=== PATIENT | female | born 1965 | race Caucasian/White ===

== ENCOUNTER 2023-07-26 10:35 | Outpatient (REF) | payer MEDICARE, SELFPAY ==
[2023-07-26 11:33] LABS: SARS-CoV-2 Ag NEGATIVE (NEGATIVE)
[2023-07-26 11:34] LABS: Influenza Virus A Antigen Negative; Influenza Virus B Antigen Negative; Internal Control Within Normal Limits
== END 2023-07-26 10:36 | disposition home or self-care (01) ==
LOC: LAB 10:35
PROVIDERS: PCP Nurse Practitioner; Visit Provider Nurse Practitioner
DX: Z20.822 Contact with and (suspected) exposure to COVID-19 (principal); Z11.8 Encounter for screening for other infectious and parasitic diseases
CPT/HCPCS: 87635; 87804; 87811

== ENCOUNTER 2024-03-12 08:59 | Outpatient (REF) | payer MEDICARE, SELFPAY ==
--- OUTSIDE RECORDS SUMMARY | 2024-03-12 09:23 | XMS_ITS | CCD ---
Author Organization [facility]iniSyny Care Team Providers Care Disassembler Product Name Role Phone KATEY BRYANT Attending Unavailable MANNY, AHMAD Consulting Unavailable MANNY, AHMAD Admitting Unavailable AICHHOLZ, SUGAR GRINDER SANDRA Primary Care Unavailable MANNY, AHMAD Admitting Unavailable MANNY, AHMARIAJOSED Attending Unavailable MANNY, AHMAD Consulting Unavailable AICHHOLZ, SUGAR GRINDER SANDRA Primary Care Unavailable AICHHOLZ, SUGAR GRINDER SANDRA Primary Care Unavailable AICHHOLZ, SUGAR GRINDER SANDRA Admitting Unavailable AICHHOLZ, SUGAR GRINDER SANDRA Attending Unavailable AICHHOLZ, SUGAR GRINDER SANDRA Consulting Unavailable AICHHOLZ, SUGAR GRINDER SANDRA Primary Care Unavailable AICHHOLZ, SUGAR GRINDER SANDRA Admitting Unavailable AICHHOLZ, SUGAR GRINDER SNADRA Attending Unavailable AICHHOLZ, SUGAR GRINDER SANDRA Consulting Unavailable AICHHOLZ, SUGAR GRINDER SANDRA Primary Care Unavailable AICHHOLZ, SUGAR GRINDER SANDRA Admitting Unavailable AICHHOLZ, SUGAR GRINDER SANDRA Attending Unavailable AICHHOLZ, SUGAR GRINDER SANDRA Consulting Unavailable AICHHOLZ, SUGAR GRINDER SANDRA Primary Care Unavailable AICHHOLZ, SUGAR GRINDER SANDRA Admitting Unavailable AICHHOLZ, SUGAR GRINDER SANDRA Attending Unavailable AICHHOLZ, SUGAR GRINDER SANDRA Consulting Unavailable MD Katey Bryant Attending Provider Sandra Ho Primary Care Provider DO Noel Santiago Attending Provider Sandra Ho Primary Care Provider DO Noel Santiago Attending Provider Sandra Ho Primary Care Unavailable Manny, Ahmad Admitting Unavailable Ross Bryantd Attending Unavailable Sandra Ho Primary Care Unavailable Noel Santiago Admitting Unavailable Noel Santiago Attending Unavailable Sandra Ho Primary Care Unavailable Noel Santiago Attending Unavailable Noel Santiago Admitting Unavailable Sandra Ho Primary Care Unavailable Noel Santiago Attending Unavailable Noel Santiago Admitting Unavailable Sandra Ho Primary Care Unavailable Noel Santiago Attending Unavailable Noel Santiago Admitting Unavailable Eduard Sethi MD Primary Care Provider Vic APPLICATIONS SALES REPRESENTATIVE, Sandra Unavailable SANDRA HO Attending Unavailable SANDRA HO Attending Unavailable SANDRA HO Attending Unavailable Medications Current Medications Medication Drug Class(es) Dates Sig (Normalized) Sig (Original) aspirin 325 mg oral tablet (3 sources) Platelet Aggregation Inhibitor, Nonsteroidal Anti-inflammatory Drug Start: 01-12-2022 take 1 tablet by mouth every eight hours Aspirin (Oriana Aspirin) 325 mg Tablet Active 325 MG PO Q8H January 12, 2022 3:39pm b complex-vitamin C-vitamin E-zinc (Stress Formula/Zinc) tablet (2 sources) take 1 tablet by mouth in the morning b complex-vitamin C-vitamin E-zinc (Stress Formula/Zinc) tablet Take 1 tablet by mouth in the morning. 0 Active cholecalciferol 0.125 mg oral tablet (6 sources) Vitamin D Start: 01-12-2022 take 1 tablet by mouth once daily Cholecalciferol (Vitamin D3) (Vitamin D3) 125 mcg (5,000 unit) Tablet Active 125 MCG PO Daily January 12, 2022 3:20pm take 1 tablet by evelin th once in the morning cholecalciferol (Vitamin D-3) 50 MCG (20 00 UT) tablet Indications: Vitamin D Deficiency Take 2,000 Units by mouth in the morning. 0 Active DULoxetine 30 mg delayed release oral capsule (12 sources) Serotonin and Norepinephrine Reuptake Inhibitor Start: 07-04-2023 End: 07-03-2024 take 1 capsule by mouth at bedtime DULoxetine (Cymbalta) [address] capsule Indications: Mild episode of recurrent major depressive disorder (HCC) (CMS/HCC) Take 1 capsule (30 mg) by mouth at bedtime Do not crush or chew. 90 capsule 0 07/04/2023 07/03/2024 Active Start: 07-04-2023 End: 10-02-2023 take 1 capsule by mouth in the morning DULoxetine (Cymbalta) [address] capsule Indications: Mild episode of recurrent major depressive disorder (HCC) (CMS/HCC) Take 1 capsule (60 mg) by mouth in the morning. Do not crush or chew.. 90 capsule 0 07/04/2023 10/02/2023 Active Start: 01-12-2022 take 1 capsule by mo uth once daily at bedtime Duloxetine (Cymbalta) 30 mg Capsule,Delayed Release(Dr/Ec) Active 30 MG PO Daily at bedtime January 12, 2022 3:20pm Start: 01-12-2022 take 1 capsule by mo uth once daily in the morning Duloxetine (Cymbalta) 60 mg Capsule,Delayed Release(Dr/Ec) Active 60 MG PO Every morning January 12, 2022 3:20pm magnesium lactate 84 mg extended release oral tablet (2 sources) take 1 tablet by mouth in the morning magnesium lactate CR (Magtab) 84 MG (7MEQ) ER tablet Take 84 mg by mouth in the morning. 0 Active omeprazole 20 mg delayed release oral capsule (3 sources) Proton Pump Inhibitor take 1 capsule by mouth before mealtime omeprazole (PriLOSEC) [address] capsule Indications: Gastroesophageal Reflux Disease Take 20 mg by mouth in the morning. Take before meals. Do not crush or chew.. 0 Active Turmeric extract (2 sources) Turmeric (QC SAMARA GEOVANNA COMPLEX PO) Take by mouth 0 Active vitamin k1 5 mg oral tablet (2 sources) Warfarin Reversal Agent, Vitamin K phytonadione (Vitami n K) 5 MG tablet Take by mouth 0 Active Problems Active Problems Problem Classification Problem Date Documented Date Episodic/Chronic Anxiety disorders (3 sources) Generalized anxiety disorder; Translations: [Generalized anxiety disorder] Onset: 08-23-2023 08-23-2023 Chronic Complications of surgical procedures or medical care (3 sources) History of parathyroidectomy; Translations: [Postprocedural hypoparathyroidism] Onset: 07-04-2023 07-04-2023 Chronic Disorders of lipid metabolism (10 sources) Hyperlipidemia, unspecified; Translations: [Mixed hyperlipidemia] Onset: 08-30-2021 Resolved: 08-23-2023 Chronic Endometriosis (3 sources) Endometriosis (clinical); Translations: [Endometriosis, unspecified] Onset: 08-23-2023 08-23-2023 Chronic Esophageal disorders (3 sources) Gastroesophageal reflux disease; Translations: [Gastro-esophageal reflux disease without esophagitis] Onset: 08-23-2023 08-23-2023 Chronic Malaise and fatigue (4 sources) Fatigue; Translations: [Chronic fatigue, unspecified] Onset: 08-23-2023 08-23-2023 Chronic Malaise and fatigue (4 sources) Other fatigue; Translations: [Fatigue] Onset: 09-05-2021 08-23-2023 Episodic Mood disorders (5 sources) Recurrent major depressive episodes, mild ; Translations: [Major depressive disorder, recurrent, mild] Onset: 07-04-2023 07-04-2023 Chronic Nutritional deficiencies (6 sources) Vitamin D deficiency, unspecified; Translations: [Vitamin D deficiency] Onset: 12-15-2021 07-04-2023 Chronic Other endocrine disorders (1 source) Primary hyperparathyroidism; Translations: [PRIMARY HYPERPARATHYROIDISM] Onset: 12-15-2021 Chronic Other endocrine disorders (7 sources) Hyperparathyroidism; Translations: [Hyperparathyroidism, unspecified] Onset: 07-04-2023 07-04-2023 Chronic Other endocrine disorders (1 source) Endocrine disorder, unspecified; Translations: [ENDOCRINE DISORDER UNSPECIFIED] Onset: 11-03-2021 Episodic Other nutritional; endocrine; and metabolic disorders (4 sources) Hypercalcemia; Translations: [HYPERCALCEMIA] Onset: 12-12-2021 Chronic Other nutritional; endocrine; and metabolic disorders (3 sources) Hypercalcemia; Translations: [Hypercalcemia] Onset: 07-04-2023 07-04-2023 Chronic Other nutritional; endocrine; and metabolic disorders (5 sources) Body mass index 30+ - obesity; Translations: [Obesity, unspecified] Onset: 07-26-2023 07-26-2023 Chronic Other nutritional; endocrine; and metabolic disorders (4 sources) Weight gain; Translations: [Abnormal weight gain] Onset: 08-23-2023 08-23-2023 Episodic Other screening for suspected conditions (not mental disorders or infectious disease) (11 sources) Encounter for screening for malignant neoplasm of cervix; Translations: [Patient encounter status] Onset: 08-31-2021 Episodic Other upper respiratory disease (3 sources) Allergic rhinitis due to pollen; Translations: [Allergic rhinitis due to pollen] Onset: 08-23-2023 08-23-2023 Chronic Residual codes; unclassified (1 source) Acquired absence of uterus with remaining cervical stump; Translations: [ACQ ABSENCE UTRUS REM CERV STUMP] Onset: 12-15-2021 Episodic Residual codes; unclassified (3 sources) Insomnia; Translations: [Insomnia, unspecified] Onset: 08-23-2023 08-23-2023 Episodic Thyroid disorders (5 sources) Non-toxic uninodular goiter; Translations: [Nontoxic single thyroid nodule] Onset: 07-04-2023 07-04-2023 Chronic Unclassified (1 source) Postprocedural hypoparathyroidism; Translations: [Postprocedural hypoparathyroidism] Onset: 09-13-2022 Unclassified (1 source) E21.3 - Hyperparathyroidism, unspecified; Translations: [E21.3 - Hyperparathyroidism, unspecified] Onset: 01-24-2022 Unclassified (1 source) E21.0 - Primary hyperparathyroidism; Translations: [E21.0 - Primary hyperparathyroidism] Onset: 01-16-2022 Unclassified (1 source) Z01.812 - Encounter for preprocedural laboratory examination; Translations: [Z01.812 - Encounter for preprocedural laboratory examination] Onset: 01-12-2022 Unclassified (1 source) E83.52 - Hypercalcemia; Translations: [E83.52 - Hypercalcemia] Onset: 12-29-2021 Past or Other Problems Problem Classification Problem Date Documented Date Episodic/Chronic Other female genital disorders (1 source) Other specified noninflammatory disorders of vagina; Translations: [OTH SPEC NONINFLAMMATORY D/O VAGINA] Onset: 09-05-2021 Episodic Results Test Name Value Interpretation Reference Range Facility Calciumon 09-13-2022 Calcium [Mass/Vol] 9.5 mg/dL Normal 8.2-10.2 [facility] Comment on above: Order Comment: Reaso n for Exam Status post parathyroidectomy Performed By: #### S [id number], [id number], [id number] #### [address] Calcium [Mass/volume] in Ser um or PlasmaOrdered By: Noel Santiago on 09-13-2022 Calcium [Mass/Vol] 9.5 mg/dL 8.2-10.2 [facility] Parathyrin.intact [Mass/volu me] in Serum or PlasmaOrdered By: Noel Santiago on 09-13-2022 Parathyrin.intact [Mass/Vol] 78.7 pg/mL [facility] Parathyroid Hormone Intacton 09-13-2022 Parathyroid Hormone Intact 78.7 pg/mL Normal [facility] Comment on above: Order Comment: Reaso n for Exam Status post parathyroidectomy Result Comment: PERF ORMED BY: [place] [id number] PATHOLOGIST FURNACE FEEDER MARK PURDY M.D. Performed By: #### S [id number], [id number], [id number] #### [facility] [address] [place], [place] [id number] [facility] Calciumon 01-24-2022 Calcium [Mass/Vol] 9.4 mg/dL Normal 8.2-10.2 [facility] Comment on above: Order Comment: Reaso n for Exam Hyperparathyroidism Performed By: #### S [id number], [id number], [id number] #### [facility] [address] [place], [place] [id number] [facility] Parathyroid Hormone Intacton 01-24-2022 Parathyroid Hormone Intact 66.8 pg/mL Normal [facility] Comment on above: Order Comment: Reaso n for Exam Hyperparathyroidism Result Comment: PERF ORMED BY: [facility] [address] [place] [address] PATHOLOGIST FURNACE FEEDER MARK PURDY M.D. Performed By: #### S [id number], [id number], [id number] #### [facility] [address] [place], [place] [id number] [facility] Calciumon 01-16-2022 Calcium [Mass/Vol] 10.0 mg/dL Normal 8.2-10.2 [facility] Comment on above: Order Comment: Comme nt Run stat and call to Dr. Santiago Performed By: #### S [id number], [id number], [id number] #### [facility] [address] [place] [address] [place] Intact PTH IO 10MINon 2021 Intact PTH IO 10MIN 81.16 pg/mL Normal 12.00-88.00 [facility] Comment on above: Result Comment: Resu lts called at 0853 on 01/16/22 PERFORMED BY: [place] [address] PATHOLOGIST FURNACE FEEDER MARK PURDY M.D. Performed By: #### S [id number], [id number], [id number] #### [facility] [address] [place] [address] [place] Intact PTH IO 15MINon 2021 Intact PTH IO 15MIN 61.90 pg/mL Normal [facility] Comment on above: Result Comment: Resu lts called at 0859 on 01/16/22 PERFORMED BY: [place] [address] PATHOLOGIST FURNACE FEEDER MARK PURDY M.D. Performed By: #### S [id number], [id number], [id number] #### [facility] [address] [place] [address] [place] Intact PTH IO Additionalon 0 01-16-2022 Intact PTH IO Additional 38.30 pg/mL [facility] Comment on above: Order Comment: Comme nt 30 min PTO IO Minutes from excision: 30 Result Comment: Resu lts called at 0916 on 01/16/22 PERFORMED BY: [place] [address] PATHOLOGIST FURNACE FEEDER MARK PURDY M.D. Performed By: #### S TATPTHIO ADDL #### [facility] [address] [place] [address] [place] Intact PTH IO Post Induction on 01-16-2022 Intact PTH IO Post Induction 120.90 High 12.00-88.00 [facility] Comment on above: Result Comment: Resu lts called at 0825 on 01/16/22 PERFORMED BY: [place] [id number] [place] [id number] PATHOLOGIST FURNACE FEEDER MARK PURDY M.D. Performed By: #### S [id number], [id number], [id number] #### [facility] [address] [place] [address] [facility] 01-16-2022 L -- ---- Specimen: [id number] Received: 01/16/22 Status: RIYA Pena Num: [id number] Spec Type: Surgical Subm Dr: Noel Santiago DO Tissues: A Parathyroid Gland (RT INF PARATHYROID) Procedures: HE Stain, Gross/Micro L4 ---- Patient Age/Sex Location Account Attending Physician ---- Sandra Hammond 56/F [place] [id number] Noel W Murcek,DO ---- SPEC NUM: [id number] RECD: 01/16/22 STATUS: RIYA KELLE NUM: [id number] MARK: 01/16/22 DR: Noel Santiago, ENTERED: 01/16/[address] [facility] [address]: JAMIE TYPE: Surgical DEPT: S ORDERED: HE Stain, Gross/Micro L4 ORDERED: HE Stain, Gross/Micro L4 Pathological Diagnosis Parathyroid gland, right inferior, parathyroidectomy: -Parathyroid adenoma, (oxyphil type), 1100 mg Clinical Information Hyperparathyroidism Gross Description Received fresh labeled with the patient's name, number and right inferior parathyroid is a 1.1 g, 2 x 1.6 x 0.5 cm red-brown tissue fragment. Touch preps are performed and the specimen is entirely taken for frozen section as A1 FS. Entirely submitted in one cassette labeled A1. (/) Intraoperative Diagnosis A. Parathyroid gland, right inferior, parathyroidectomy: - Parathyroid tissue present, 1.1 g. The diagnosis is conveyed to Dr. Santiago by Dr. Tenorio at 8:47 AM on January 16, 2022 Microscopic Description Three glass slides stained with H and E material, (including two frozen section slides) and one touch prep slides stained with diff Quik have been examined. The microscopic findings support the above diagnosis. ---- Specimen: [id number] Received: 01/16/22 Status: RIYA Pena Num: [id number] Spec Type: Surgical Subm Dr: Noel Santiago DO Tissues: A Parathyroid Gland (RT INF PARATHYROID) Procedures: HE Stain, Gross/Micro L4 ---- Patient: Sandra Hammond [id number] (Continued) ---- Specimen: [id number] Received: 01/16/22 (Continued) Signed (signature on file) Edith Tenorio MD 01/18/22 1024 ---- Specimen: [id number] Received: 01/16/22 Status: RIYA Pena Num: [id number] Spec Type: Surgical Subm Dr: Noel Santiago DO Tissues: A Parathyroid Gland (RT INF PARATHYROID) Procedures: HE Stain, Gross/Micro L4 ---- Patient: Sandra Hammond [id number] (Continued) ---- Specimen: [id number] Received: 01/16/22 (Continued) CPT Codes 02928, 43869 ---- ---- Specimen: [id number] Received: 01/16/22 Status: RIYA Pena Num: [id number] Spec Type: Surgical Subm Dr: Noel Santiago DO Tissues: A Parathyroid Gland (RT INF PARATHYROID) Procedures: HE Stain, Gross/Micro L4 ---- Patient: Sandra Hammond [id number] (Continued) ---- Signed (signature on file) Edith Tenroio MD 01/18/22 1024 Normal [facility] No Panel InformationOrdered By: Noel Santiago on 01-16-2022 PTH (Intact) Intraoperative 15 Min 61.90 pg/mL [facility] Comment on above: Results called at 0859 on 01/16/22 Parathyroid Hormone Intacton 01-16-2022 Parathyroid Hormone Intact 11.5 pg/mL Low 12-88 [facility] Comment on above: Order Comment: Comme nt Run stat and call to Dr. Santiago Result Comment: PERF ORMED BY: [place] [address] PATHOLOGIST FURNACE FEEDER MARK PURDY M.D. Performed By: #### S [id number], [id number], [id number] #### [facility] [address] Parathyroid hormone intraope rativeOrdered By: Noel Santiago on 01-16-2022 Parathyrin.intact intraoperative percent change [Mass conc % diff] 38.30 pg/mL [facility] Comment on above: Results called at 0916 on 01/16/22 Serum or plasma calcium naye urement (mass/volume)Ordered By: Noel Santiago on 01-16-2022 Calcium [Mass/Vol] 10.0 mg/dL 8.2-10.2 [facility] Serum or plasma intact parat hyroid hormone measurement (mass/volume)Ordered By: Noel Santiago on 01-16-2022 Parathyrin.intact [Mass/Vol] 11.5 pg/mL [facility] Parathyrin.intact [Mass/Vol] 81.16 pg/mL .. [facility] Comment on above: Results called at 0853 on 01/16/22 Parathyrin.intact [Mass/Vol] 120.90 pg/mL .-.00 [facility] Comment on above: Results called at 0825 on 01/16/22 COVID-19 FRMCon 01-12-2022 SARS-CoV-2 (COVID-19) RNA GABRIELE+probe Ql (Unsp spec) Negative Normal Negative [facility] Comment on above: Order Comment: Healt hcare Worker?: N Result Comment: Testing for SARS-CoV-2 by RT-PCR This test was developed and its performance characteristics determined by [employer] ([employer]) and validated at the [facility]. This test has not been FDA cleared or approved. This test has been authorized by FDA under an Emergency Use Authorization (EUA). This test has been validated in accordance with the FDA's Guidance Document (Policy for Diagnostics Testing in Laboratories Certified to Perform High Complexity Testing under CLIA prior to Emergency Use Authorization for Coronavirus Disease-2019 during the Public Health Emergency) issued on October 23, 2019. This test is only authorized for the duration of time the declaration that circumstances exist justifying the authorization of the emergency use of in vitro diagnostic tests for detection of SARS-CoV-2 virus and/or diagnosis of COVID-19 infection under section 564(b)(1) of the Act, 21 U.S.C. 360bbb-3(b)(1), unless the authorization is terminated or revoked sooner. PERFORMED BY: [place] [address] PATHOLOGIST FURNACE FEEDER MARK PURDY M.D. Performed By: #### S [id number], [id number], [id number] #### [address] COVID-19 Positive/NegativeOr dered By: Noel Santiago on 06-23-2022 SARS-CoV-2 (COVID-19) N gene GABRIELE+probe Ql (Resp) Negative Negative [facility] Comment on above: Testing for SARS-CoV -2 by RT-PCR This test was developed and its performance characteristics determined by [employer] ([employer]) and validated at the [facility]. This test has not been FDA cleared or approved. This test has been authorized by FDA under an Emergency Use Authorization (EUA). This test has been validated in accordance with the FDA's Guidance Document (Policy for Diagnostics Testing in Laboratories Certified to Perform High Complexity Testing under CLIA prior to Emergency Use Authorization for Coronavirus Disease-2019 during the Public Health Emergency) issued on October 23, 2019. This test is only authorized for the duration of time the declaration that circumstances exist justifying the authorization of the emergency use of in vitro diagnostic tests for detection of SARS-CoV-2 virus and/or diagnosis of COVID-19 infection under section 564(b)(1) of the Act, 21 U.S.C. 360bbb-3(b)(1), unless the authorization is terminated or revoked sooner. Calciumon 01-12-2022 Calcium [Mass/Vol] 10.6 mg/dL High 8.2-10.2 [facility] Comment on above: Performed By: #### T SH3, PTH, CA, [id number] #### [address] ECG 12 lead ECGon 01-12-2022 ECG 12 lead ECG [facility] [place] [address] [place] [address] Electrocardiograph Report Signed Patient: Sandra Hammond MR#: [id number] : 1965 Acct:[id number] Age/Sex: 56 / F ADM Date: 01/12/22 Loc: Room: Type: [facility] Attending Dr: Noel Santiago DO Ordering Provider: Noel Santiago DO Date of Service: 01/12/22 ECG/ECG 12 lead ECG: surgery 01/16/22 Copies to: Test Reason : Blood Pressure : / mmHG Vent. Rate : 071 BPM Atrial Rate : 071 BPM P-R Int : 170 ms QRS Dur : 096 ms QT Int : 402 ms P-R-T Axes : 039 -21 -01 degrees QTc Int : 436 ms Normal sinus rhythm Normal ECG No previous ECGs available Confirmed by JW LO DO ([id number]) on 01/12/2022 4:15:16 PM Referred By: VIC SANTIAGO Electronically Signed By:JW LO DO Transcribed By: MUS Signed By Jw Lo DO 01/12 1615 Normal [facility] No Panel InformationOrdered By: Noel Santiago on 01-12-2022 25-Hydroxy Vitamin D Total 43.7 ng/mL 30-100 [facility] Comment on above: VITAMIN D STATUS 25( [place])VITAMIN D RANGE (ng/mL) Deficient <20 Insufficient 20 to <30 Sufficient 30 to 100 Reference: Latricia MF,Yrn AYON, Frannie GRAHAM, et al. Evaluation,treatment, and prevention of vitamin D deficiency; an Endocrine Society clinical practice guideline. JCEM. 2010; 96(7):1911-30. Parathyroid Hormone Intacton 01-12-2022 Parathyroid Hormone Intact 172.0 pg/mL High [facility] Comment on above: Result Comment: PERF ORMED BY: [place] [address] PATHOLOGIST FURNACE FEEDER MARK PURDY M.D. Performed By: #### T SH3, PTH, CA, [id number] #### [address] Serum or plasma calcium naye urement (mass/volume)Ordered By: Noel Santiago on 01-12-2022 Calcium [Mass/Vol] 10.6 mg/dL 8.2-10.2 [facility] Serum or plasma intact parat hyroid hormone measurement (mass/volume)Ordered By: Noel Santiago on 01-12-2022 Parathyrin.intact [Mass/Vol] 172.0 pg/mL [facility] TSH DL <= 0.005 mIU/L QnOrde red By: Noel Santiago on 01-12-2022 TSH Qn 2.16 m[IU]/L 0.45-5.33 [facility] Thyroid Stimulating Hormoneo n 01-12-2022 TSH Qn 2.16 m[IU]/L Normal 0.45-5.33 [facility] Comment on above: Performed By: #### T SH3, PTH, CA, [id number] #### [facility] [address] [place] [address] [facility] Vitamin D 25 Hydroxy Totalon 01-12-2022 Vitamin D 25 Hydroxy Total 43.7 ng/mL Normal 30-100 [facility] Comment on above: Result Comment: KIMBERLY MIN D STATUS 25([place])VITAMIN D RANGE (ng/mL) Deficient <20 Insufficient 20 to <30 Sufficient 30 to 100 Reference: Latricia MF,Yrn AYON, Frannie GRAHAM, et al. Evaluation,treatment, and prevention of vitamin D deficiency; an Endocrine Society clinical practice guideline. JCEM. 2010; 96(7):1911-30. Performed By: #### T SH3, PTH, CA, [id number] #### [facility] [address] [place] [address] [facility] CALCIUM 24 HR URINEon 2021 CALC, 24 HR UR 516.4 mg/24 hr Critically high 100.0-300.0 [facility] Comment on above: Performed By: #### B MP #### [facility] [address] [place] [address] Dr. Rosa Soliz UR CALCIUM 22.7 mg/dL Critically high 5.1-21.0 [facility] Comment on above: Performed By: #### B MP #### [facility] [address] [place] [address] Dr. Rosa Soliz CREA 24 HR URINEon 2 CREA, 24 HR UR 1114.07 mg/24 hr Normal 800.00-1, 800 .00 [facility] Comment on above: Performed By: #### U AMIC #### [facility] [address] [place] [address] Dr. Rosa Soliz UR TOT VOL 2275 ml/24 HR Normal [facility] Comment on above: Performed By: #### U AMIC #### [facility] [address] [place] [address] Dr. Rosa Soliz Performed By: #### B MP #### [facility] [address] [place] [address] Dr. Rosa Soliz URINE CREAT 48.97 mg/dL Normal 20.00-300.00 [facility] Comment on above: Performed By: #### U AMIC #### [facility] [address] [place] [address] Dr. Rosa Soliz PARATHYROID HORMONE PLUS [place] n 12-11-2021 Calcium [Mass/Vol] 10.8 mg/dL Critically high 8.7-10.2 [facility] Comment on above: Performed By: #### U AMIC #### [facility] [address] [place] [address] Dr. Rosa Soliz Intact PTH Comment Normal [facility] Comment on above: Result Comment: Inte rpretation Intact PTH Calcium (pg/mL) (mg/dL) Normal 15 - 65 8.6 - 10.2 Primary Hyperparathyroidism >65 >10.2 Secondary Hyperparathyroidism >65 <10.2 Non-Parathyroid Hypercalcemia <65 >10.2 Hypoparathyroidism <15 < 8.6 Non-Parathyroid Hypocalcemia 15 - 65 < 8.6 . Performed By: #### U AMIC #### [facility] [address] [place] [address] Dr. Rosa Soliz PTH, Intact 134 pg/mL Critically high 15-65 [facility] Comment on above: Performed By: #### U AMIC #### [facility] [address] [place] [address] Dr. Rosa Soliz ESTROGENon 12-10-2021 Estrogens, Total 44 pg/mL Normal 40-244 [facility] Comment on above: Result Comment: Prep ubertal < 40 Female Cycle: 1-10 Days 16 - 328 11-20 Days 34 - 501 21-30 Days 48 - 350 Post-Menopausal 40 - 244 Performed By: #### E STROG #### [facility] [address] [place] [address] Dr. Rosa Soliz FSHon 12-08-2021 FSH 45.2 mIU/mL Normal [facility] Comment on above: Result Comment: Adul t Female: Follicular phase 3.5 - 12.5 Ovulation phase 4.7 - 21.5 Luteal phase 1.7 - 7.7 Postmenopausal 25.8 - 134.8 Performed By: #### B MP #### [facility] [address] [place] [address] Dr. Rosa Soliz LUTEINIZING HORMONE (LH)on 0 12-08-2021 LH 29.2 mIU/mL Normal [facility] Comment on above: Result Comment: Adul t Female: Follicular phase 2.4 - 12.6 Ovulation phase 14.0 - 95.6 Luteal phase 1.0 - 11.4 Postmenopausal 7.7 - 58.5 Performed By: #### L [facility] #### [facility] [address] [place] [address] Dr. Rosa Soliz PROGESTERONEon 12-08-2021 Progesterone 0.1 ng/mL Normal [facility] Comment on above: Result Comment: Foll icular phase 0.1 - 0.9 Luteal phase 1.8 - 23.9 Ovulation phase 0.1 - 12.0 First trimester 11.0 - 44.3 Second trimester 25.4 - 83.3 Third trimester 58.7 - 214.0 Postmenopausal 0.0 - 0.1 Performed By: #### U AMIC #### [facility] [address] [place] [address] Dr. Rosa Soliz MAGNESIUMon 12-06-2021 Magnesium [Mass/Vol] 2.3 mg/dL Normal 1.8-2.4 [facility] Comment on above: Performed By: #### B MP #### [facility] [address] [place] [address] Dr. Rosa Soliz RENAL FUNCTION PANELon 12-06 Albumin [Mass/Vol] 4.0 g/dL Normal 3.4-5.0 [facility] Comment on above: Performed By: #### B MP #### [facility] [address] [place] [address] Dr. Rosa Soliz Calcium [Mass/Vol] 10.2 mg/dL Critically high 8.5-10.1 [facility] Comment on above: Performed By: #### B MP #### [facility] [address] [address] [address] Rosa Soliz Chloride [Moles/Vol] 103 mmol/L Normal 98-107 [facility] Comment on above: Performed By: #### B MP #### [facility] [address] [address] [address] Rosa Soliz CO2 [Moles/Vol] 27.0 mmol/L Normal 21.0-32.0 [facility] Comment on above: Performed By: #### B MP #### [facility] [address] [address] [address] Rosa Soliz Creatinine [Mass/Vol] 0.90 mg/dL Normal 0.55-1.02 [facility] Comment on above: Performed By: #### B MP #### [facility] [address] [place] [address] Dr. Rosa Soliz EGFR-AF [place] >60 Normal >=60 [facility] Comment on above: Performed By: #### B MP #### [facility] [address] [address] [address] Rosa Soliz EGFR-NON AF [place] >60 Normal >=60 [facility] Comment on above: Performed By: #### B MP #### [facility] [address] [place] [address] Dr. Rosa Soliz Glucose [Mass/Vol] 158 mg/dL Critically high 74-106 [facility] Comment on above: Performed By: #### B MP #### [facility] [address] [place] [address] Dr. Rosa Soliz Phosphate [Mass/Vol] 2.9 mg/dL Normal 2.6-4.7 [facility] Comment on above: Performed By: #### B MP #### [facility] [address] [place] [address] Dr. Rosa Soliz Potassium [Moles/Vol] 4.2 mmol/L Normal 3.5-5.1 [facility] Comment on above: Performed By: #### B MP #### [facility] [address] [address] [address] Rosa Soliz Sodium [Moles/Vol] 139 mmol/L Normal 136-145 [facility] Comment on above: Performed By: #### B MP #### [facility] [address] [address] [address] Rosa Soliz Urea nitrogen [Mass/Vol] 14.0 mg/dL Normal 7.0-18.0 [facility] Comment on above: Performed By: #### B MP #### [facility] [address] [place] [address] Dr. Rosa Soliz VITAMIN D 25 OHon 12-06-2021 VIT D 25-OH 39.8 ng/mL Normal [facility] Comment on above: Performed By: #### U AMIC #### [facility] [address] [place] [address] Dr. Rosa Soliz VIT D RANGES SEE BELOW Normal [facility] Comment on above: Result Comment: <20 ng/mL Vit D deficient 20 - <30 ng/mL Vit D insufficient 30 - 100 ng/mL Vit D sufficient >100 ng/mL Potential Toxicity Performed By: #### U AMIC #### [facility] [address] [place] [address] Dr. Rosa Soliz PTH INTACTon 11-02-2021 PTH, Intact 85 pg/mL Critically high 15-65 [facility] Comment on above: Performed By: #### U AMIC #### [facility] [address] [place] [address] Dr. Rosa Soliz PROF CHEM 8 (BAS METB)on Anion gap [Moles/Vol] 11.6 mmol/L Normal [facility] Comment on above: Performed By: #### B MP #### [facility] [address] [place] [address] Dr. Rosa Soliz Calcium [Mass/Vol] 10.8 mg/dL Critically high 8.5-10.1 [facility] Comment on above: Performed By: #### B MP #### [facility] [address] [place] [address] Dr. Rosa Soliz Chloride [Moles/Vol] 103 mmol/L Normal 98-107 [facility] Comment on above: Performed By: #### B MP #### [facility] [address] [address] [address] Rosa Soliz CO2 [Moles/Vol] 28.0 mmol/L Normal 22.0-30.0 [facility] Comment on above: Performed By: #### B MP #### [facility] [address] [address] [address] Rosa Soliz Creatinine [Mass/Vol] 0.93 mg/dL Normal 0.52-1.04 [facility] Comment on above: Performed By: #### B MP #### [facility] [address] [place] [address] Dr. Rosa Soliz EGFR-AF [place] >60 Normal >=60 [facility] Comment on above: Performed By: #### B MP #### [facility] [address] [place] [address] Dr. Rosa Soliz EGFR-NON AF [place] >60 Normal >=60 [facility] Comment on above: Performed By: #### B MP #### [facility] [address] [address] [address] Rosa Soliz Glucose [Mass/Vol] 91 mg/dL Normal 74-106 [facility] Comment on above: Performed By: #### B MP #### [facility] [address] [place] [address] Dr. Rosa Soliz Potassium [Moles/Vol] 4.6 mmol/L Normal 3.4-5.0 [facility] Comment on above: Performed By: #### B MP #### [facility] [address] [place] [address] Dr. Rosa Soliz Sodium [Moles/Vol] 138 mmol/L Normal 137-145 [facility] Comment on above: Performed By: #### B MP #### [facility] [address] [place] [address] Dr. Rosa Soliz Urea nitrogen [Mass/Vol] 14.0 mg/dL Normal 7.0-18.0 [facility] Comment on above: Performed By: #### B MP #### [facility] [address] [place] [address] Dr. Rosa Soliz Urea nitrogen/Creatinine [Mass ratio] 15.1 mg/mg Normal [facility] Comment on above: Performed By: #### B MP #### [facility] [address] [place] [address] Dr. Rosa Soliz VITAMIN D 25 OHon 10-31-2021 VIT D 25-OH 35.2 ng/mL Normal [facility] Comment on above: Performed By: #### V ITAD #### [facility] [address] [place] [address] Dr. Rosa Soliz VIT D RANGES SEE BELOW Normal [facility] Comment on above: Result Comment: <20 ng/mL Vit D deficient 20 - <30 ng/mL Vit D insufficient 30 - 100 ng/mL Vit D sufficient >100 ng/mL Potential Toxicity Performed By: #### V ITAD #### [facility] [address] [place] [address] Dr. Rosa Soliz PTH INTACTon 09-09-2021 PTH, Intact 83 pg/mL Critically high 15-65 [facility] Comment on above: Performed By: #### P THINT #### [facility] [address] [place] [address] Dr. Rosa Soliz PROF CHEM 8 (BAS METB)on Anion gap [Moles/Vol] 8.1 mmol/L Normal [facility] Comment on above: Performed By: #### U AMIC #### [facility] [address] [place] [address] Dr. Rosa Soliz Calcium [Mass/Vol] 10.0 mg/dL Normal 8.4-10.2 [facility] Comment on above: Performed By: #### U AMIC #### [facility] [address] [place] [address] Dr. Rosa Soliz Chloride [Moles/Vol] 105 mmol/L Normal 98-107 [facility] Comment on above: Performed By: #### U AMIC #### [facility] [address] [place] [address] Dr. Rosa Soliz CO2 [Moles/Vol] 28.5 mmol/L Normal 22.0-30.0 [facility] Comment on above: Performed By: #### U AMIC #### [facility] [address] [address] [address] Rosa Soliz Creatinine [Mass/Vol] 1.03 mg/dL Normal 0.52-1.04 [facility] Comment on above: Performed By: #### U AMIC #### [facility] [address] [address] [address] Rosa Soliz EGFR-AF [place] >60 Normal >=60 [facility] Comment on above: Performed By: #### U AMIC #### [facility] [address] [address] [address] Rosa Soliz EGFR-NON AF [place] 56 mL/min/1.73m2 Critically low >=60 [facility] Comment on above: Performed By: #### U AMIC #### [facility] [address] [address] [address] Rosa Soliz Glucose [Mass/Vol] 105 mg/dL Normal 74-106 [facility] Comment on above: Performed By: #### U AMIC #### [facility] [address] [address] [address] Rosa Soliz Potassium [Moles/Vol] 4.6 mmol/L Normal 3.4-5.0 [facility] Comment on above: Performed By: #### U AMIC #### [facility] [address] [address] [address] Rosa Soliz Sodium [Moles/Vol] 137 mmol/L Normal 137-145 [facility] Comment on above: Performed By: #### U AMIC #### [facility] [address] [address] [address] Rosa Soliz Urea nitrogen [Mass/Vol] 17.0 mg/dL Normal 7.0-17.0 [facility] Comment on above: Performed By: #### U AMIC #### [facility] [address] [address] [address] Rosa Soliz Urea nitrogen/Creatinine [Mass ratio] 16.5 mg/mg Normal [facility] Comment on above: Performed By: #### U AMIC #### [facility] [address] [place] [address] Dr. Rosa Soliz VITAMIN D 25 OHon 09-07-2021 VIT D 25-OH 26.6 ng/mL Normal [facility] Comment on above: Performed By: #### U AMIC #### [facility] [address] [address] [address] Rosa Soliz VIT D RANGES SEE BELOW [facility] Comment on above: Result Comment: <20 ng/mL Vit D deficient 20 - <30 ng/mL Vit D insufficient 30 - 100 ng/mL Vit D sufficient >100 ng/mL Potential Toxicity Performed By: #### U AMIC #### [facility] [address] [place] [address] Dr. Rosa Soliz PAP ACOG PANEL 2: 30 to 65on 09-04-2021 . . Normal [facility] Comment on above: Result Comment: Perf ormed at: WB Performed By: [id number] #### [facility] [address] [place] [address] Dr. Rosa Soliz Age Gdln ACOG Testing 30-65 [facility] Comment on above: Performed By: #### [id number] #### [facility] [address] [place] [address] Dr. Rosa Soliz DIAGNOSIS: Comment Normal [facility] Comment on above: Result Comment: NEGA TIVE FOR INTRAEPITHELIAL LESION OR MALIGNANCY. Performed at: WB Performed By: #### [id number] #### [facility] [address] [place] [address] Dr. Rosa Soliz HPV Aptima Negative Normal Negative [facility] Comment on above: Result Comment: This nucleic acid amplification test detects fourteen high-risk HPV types (16,18,31,33,35,39,45,51,52,56,58,59,66,68) without differentiation. Performed at: =G Performed By: #### [id number] #### [facility] [address] [place] [address] Dr. Rosa Soliz Methodology: Comment Normal [facility] Comment on above: Result Comment: This liquid based ThinPrep(R) pap test was screened with the use of an image guided system. Performed at: WB Performed By: #### [id number] #### [facility] [address] [place] [address] Dr. Rosa Soliz Note: Comment Normal [facility] Comment on above: Result Comment: The Pap smear is a screening test designed to aid in the detection of premalignant and malignant conditions of the uterine cervix. It is not a diagnostic procedure and should not be used as the sole means of detecting cervical cancer. Both false-positive and false-negative reports do occur. . Performed at: WB Performed By: #### [id number] #### [facility] [address] [place] [address] Dr. Rosa Soliz Performed by: Comment Normal [facility] Comment on above: Result Comment: Shanta Mas Set Up Mold Technician (ASCP) Performed at: WB Performed By: [id number] #### [facility] [address] [place] [address] Dr. Rosa Soliz Specimen adequacy: Comment Normal [facility] Comment on above: Result Comment: Sati sfactory for evaluation. Endocervical and/or squamous metaplastic cells (endocervical component) are present. Performed at: WB Performed By: #### [id number] #### [facility] [address] [place] [address] Dr. Rosa Soliz VAGINITIS/VAGINOSIS DNA PROB [place] 09-01-2021 Nery species Negative Normal Negative [facility] Comment on above: Performed By: #### B MP #### [facility] [address] [place] [address] Dr. Rosa Soliz Gardnerella vaginalis Negative Normal Negative [facility] Comment on above: Performed By: #### B MP #### [facility] [address] [place] [address] Dr. Rosa Soliz Trichomonas vaginalis Negative Normal Negative [facility] Comment on above: Performed By: #### B MP #### [facility] [address] [address] [address] Rosa Soliz CBC AUTO DIFFon 08-30-2021 BASO # 0.1 103/ul Normal 0.0-0.1 [facility] Comment on above: Performed By: #### U AMIC #### [facility] [address] [place] [address] Dr. Rosa Soliz Basophils/100 WBC (Bld) 2.0 % Normal 0.2-2.0 [facility] Comment on above: Performed By: #### U AMIC #### [facility] [address] [place] [address] Dr. Rosa Soliz EO # 0.2 103/ul Normal 0.0-0.7 [facility] Comment on above: Performed By: #### U AMIC #### [facility] [address] [place] [address] Dr. Rosa Soliz Eosinophils/100 WBC (Bld) 3.1 % Normal 0.9-7.0 [facility] Comment on above: Performed By: #### U AMIC #### [facility] [address] [place] [address] Dr. Rosa Soliz Erythrocyte distribution width (RBC) [Ratio] 12.9 % Normal 11.0-15.0 [facility] Comment on above: Performed By: #### U AMIC #### [facility] [address] [place] [address] Dr. Rosa Soliz Hematocrit (Bld) [Volume fraction] 42.1 % Normal 36.0-48.0 [facility] Comment on above: Performed By: #### U AMIC #### [facility] [address] [place] [address] Dr. Rosa Soliz Hemoglobin (Bld) [Mass/Vol] 13.9 g/dL Normal 12.0-16.0 [facility] Comment on above: Performed By: #### U AMIC #### [facility] [address] [place] [address] Dr. Rosa Soliz IG # 0.01 10e3/ul Normal 0.00-0.03 [facility] Comment on above: Performed By: #### U AMIC #### [facility] [address] [place] [address] Dr. Rosa Soliz IG % 0.2 % Normal 0.0-0.5 [facility] Comment on above: Performed By: #### U AMIC #### [facility] [address] [place] [address] Dr. Rosa Soliz LYMPH # 2.0 103/ul Normal 1.2-3.8 [facility] Comment on above: Performed By: #### U AMIC #### [facility] [address] [place] [address] Dr. Rosa Soliz Lymphocytes/100 WBC (Bld) 36.5 % Normal 20.5-60.0 [facility] Comment on above: Performed By: #### U AMIC #### [facility] [address] [place] [address] Dr. Rosa Soliz MANUAL DIFF REQ NO Normal [facility] Comment on above: Performed By: #### U AMIC #### [facility] [address] [place] [address] Dr. Rosa Soliz MCH (RBC) [Entitic mass] 31.0 pg Normal 26.7-34.0 [facility] Comment on above: Performed By: #### U AMIC #### [facility] [address] [place] [address] Dr. Rosa Soliz MCHC (RBC) [Mass/Vol] 33.0 g/dL Normal 29.9-35.2 [facility] Comment on above: Performed By: #### U AMIC #### [facility] [address] [place] [address] Dr. Rosa Soliz MCV (RBC) [Entitic vol] 93.8 fL Normal 81.0-99.0 [facility] Comment on above: Performed By: #### U AMIC #### [facility] [address] [place] [address] Dr. Rosa Soliz MONO # 0.6 103/ul Normal 0.3-0.8 [facility] Comment on above: Performed By: #### U AMIC #### [facility] [address] [address] [address] Rosa Soliz Monocytes/100 WBC (Bld) 11.7 % Normal 1.7-12.0 [facility] Comment on above: Performed By: #### U AMIC #### [facility] [address] [address] [address] Rosa Soliz NEUT # 2.5 103/ul Normal 1.4-6.5 [facility] Comment on above: Performed By: #### U AMIC #### [facility] [address] [place] [address] Dr. Rosa Soliz Neutrophils/100 WBC (Bld) 46.5 % Normal 43.0-75.0 [facility] Comment on above: Performed By: #### U AMIC #### [facility] [address] [place] [address] Dr. Rosa Soliz Platelet mean volume (Bld) [Entitic vol] 11.4 fL Normal 9.5-13.5 [facility] Comment on above: Performed By: #### U AMIC #### [facility] [address] [place] [address] Dr. Rosa Soliz PLT 235 103/ul Normal 150-450 [facility] Comment on above: Performed By: #### U AMIC #### [facility] [address] [place] [address] Dr. Rosa Soliz RBC 4.49 106/ul Normal 4.20-5.40 [facility] Comment on above: Performed By: #### U AMIC #### [facility] [address] [place] [address] Dr. Rosa Soliz WBC 5.4 103/ul Normal 4.0-11.0 [facility] Comment on above: Performed By: #### U AMIC #### [facility] [address] [place] [address] Dr. Rosa Soliz FREE T4on 08-30-2021 Free T4 [Mass/Vol] 0.94 ng/dL Normal 0.78-2.19 [facility] Comment on above: Performed By: #### U AMIC #### [facility] [address] [address] [address] Rosa Soliz LIPID PROFILEon 08-30-2021 CHOL-HDL RATIO NORM SEE BELOW Normal [facility] Comment on above: Result Comment: 3.3 - 4.4 LOW RISK 4.4 - 7.1 AVERAGE RISK 7.1 - 11.0 MODERATE RISK >11.0 HIGH RISK Performed By: #### T SH, CMP, LIPID #### [facility] [address] [address] [address] Rosa Soliz Cholesterol [Mass/Vol] 269 mg/dL Critically high <=200 [facility] Comment on above: Performed By: #### T RAFAEL CMP, LIPID #### [facility] [address] [address] [address] Rosa Soliz Cholesterol in HDL [Mass/Vol] 62 mg/dL Normal [facility] Comment on above: Performed By: #### T RAFAEL CMP, LIPID #### [facility] [address] [address] [address] Rosa Soliz Cholesterol in LDL [Mass/Vol] 187.6 mg/dL Normal [facility] Comment on above: Performed By: #### T RAFAEL CMP, LIPID #### [facility] [address] [address] [address] Rosa Soliz Cholesterol.total/Choles terol in HDL [Mass ratio] 4.3 {ratio} Normal [facility] Comment on above: Performed By: #### T RAFAEL, CMP, LIPID #### [facility] [address] [place] [address] Dr. Rosa Soliz HDL NORMAL > or = 60 mg/dl - LO W CARDIOVASCULAR RISK <40 mg/dl - HIGH CARDIOVASCULAR RISK Normal [facility] Comment on above: Performed By: #### T SH, CMP, LIPID #### [facility] [address] [place] [address] Dr. Rosa Soliz LDL CALC NORMAL SEE BELOW Normal [facility] Comment on above: Result Comment: <100 mg/dl OPTIMAL 100 - 129 mg/dl NEAR OR ABOVE OPTIMAL 130 - 159 mg/dl BORDERLINE HIGH 160 - 189 mg/dl HIGH >190 mg/dl VERY HIGH Performed By: #### T SH, CMP, LIPID #### [facility] [address] [address] [address] Rosa Soliz Triglyceride [Mass/Vol] 97 mg/dL Normal <=150 [facility] Comment on above: Performed By: #### T SH, CMP, LIPID #### [facility] [address] [address] [address] Rosa Soliz VLDL CALC 19.4 mg/dL Normal [facility] Comment on above: Performed By: #### T SH, CMP, LIPID #### [facility] [address] [place] [address] Dr. Rosa Soliz PROF 14(COMP METB)on 022 Albumin [Mass/Vol] 4.5 g/dL Normal 3.5-5.0 [facility] Comment on above: Performed By: #### T SH, CMP, LIPID #### [facility] [address] [place] [address] Dr. Rosa Soliz Albumin/Globulin [Mass ratio] 1.4 {ratio} Normal [facility] Comment on above: Performed By: #### T SH, CMP, LIPID #### [facility] [address] [place] [address] Dr. Rosa Soliz ALP [Catalytic activity/Vol] 112 U/L Normal 38-126 [facility] Comment on above: Performed By: #### T SH, CMP, LIPID #### [facility] [address] [place] [address] Dr. Rosa Soliz ALT [Catalytic activity/Vol] 34 U/L Normal 9-52 [facility] Comment on above: Performed By: #### T SH, CMP, LIPID #### [facility] [address] [place] [address] Dr. Rosa Soliz Anion gap [Moles/Vol] 12.2 mmol/L Normal [facility] Comment on above: Performed By: #### T SH, CMP, LIPID #### [facility] [address] [place] [address] Dr. Rosa Soliz AST [Catalytic activity/Vol] 16 U/L Normal 14-36 [facility] Comment on above: Performed By: #### T SH, CMP, LIPID #### [facility] [address] [place] [address] Dr. Rosa Soliz Bilirubin [Mass/Vol] 0.5 mg/dL Normal 0.2-1.3 [facility] Comment on above: Performed By: #### T SH, CMP, LIPID #### [facility] [address] [place] [address] Dr. Rosa Soliz Calcium [Mass/Vol] 11.2 mg/dL Critically high 8.4-10.2 [facility] Comment on above: Performed By: #### T SH, CMP, LIPID #### [facility] [address] [place] [address] Dr. Rosa Soliz Chloride [Moles/Vol] 106 mmol/L Normal 98-107 [facility] Comment on above: Performed By: #### T SH, CMP, LIPID #### [facility] [address] [place] [address] Dr. Rosa Soliz CO2 [Moles/Vol] 27.7 mmol/L Normal 22.0-30.0 [facility] Comment on above: Performed By: #### T SH, CMP, LIPID #### [facility] [address] [place] [address] Dr. Rosa Soliz Creatinine [Mass/Vol] 0.77 mg/dL Normal 0.52-1.04 [facility] Comment on above: Performed By: #### T SH, CMP, LIPID #### [facility] [address] [place] [address] Dr. Rosa Soliz EGFR-AF [place] >60 Normal >=60 [facility] Comment on above: Performed By: #### T SH, CMP, LIPID #### [facility] [address] [place] [address] Dr. Rosa Soliz EGFR-NON AF [place] >60 Normal >=60 [facility] Comment on above: Performed By: #### T SH, CMP, LIPID #### [facility] [address] [place] [address] Dr. Rosa Soliz Globulin (S) [Mass/Vol] 3.3 g/dL Normal [facility] Comment on above: Performed By: #### T RAFAEL CMP, LIPID #### [facility] [address] [place] [address] Dr. Rosa Soliz Glucose [Mass/Vol] 89 mg/dL Normal 74-106 [facility] Comment on above: Performed By: #### T RAFAEL CMP, LIPID #### [facility] [address] [place] [address] Dr. Rosa Soliz Potassium [Moles/Vol] 4.9 mmol/L Normal 3.4-5.0 [facility] Comment on above: Performed By: #### T RAFAEL CMP, LIPID #### [facility] [address] [place] [address] Dr. Rosa Soliz Protein [Mass/Vol] 7.8 g/dL Normal 6.1-8.2 [facility] Comment on above: Performed By: #### T RAFAEL CMP, LIPID #### [facility] [address] [place] [address] Dr. Rosa Soliz Sodium [Moles/Vol] 141 mmol/L Normal 137-145 [facility] Comment on above: Performed By: #### T RAFAEL CMP, LIPID #### [facility] [address] [place] [address] Dr. Rosa Soliz Urea nitrogen [Mass/Vol] 14.0 mg/dL Normal 7.0-17.0 [facility] Comment on above: Performed By: #### T RAFAEL CMP, LIPID #### [facility] [address] [place] [address] Dr. Rosa Soliz Urea nitrogen/Creatinine [Mass ratio] 18.2 mg/mg Normal [facility] Comment on above: Performed By: #### T RAFAEL, CMP, LIPID #### [facility] [address] [place] [address] Dr. Rosa Soliz TSHon 08-30-2021 TSH 2.450 uIU/mL Normal 0.470-4.680 [facility] Comment on above: Performed By: #### T RAFAEL, CMP, LIPID #### [facility] [address] [place] [address] Dr. Rosa Soliz TSH RANGE SEE BELOW Normal [facility] Comment on above: Result Comment: <0.3 4 UIU/ml HYPERTHYROID 0.34-5.60 UIU/ml EUTHYROID >5.60 UIU/ml HYPOTHYROID Performed By: #### T SH, CMP, LIPID #### [facility] [address] [place] [address] Dr. Rosa Soliz UA RANDOM W/MICROSCOPICon BACTERIA TRACE Abnormal NONE SEEN [facility] Comment on above: Performed By: #### U AMIC #### [facility] [address] [place] [address] Dr. Rosa Soliz Bilirubin Ql (U) Negative Normal NEGATIVE [facility] Comment on above: Performed By: #### U AMIC #### [facility] [address] [place] [address] Dr. Rosa Soliz CA OX CRYSTALS MODERATE Normal [facility] Comment on above: Performed By: #### U AMIC #### [facility] [address] [place] [address] Dr. Rosa Soliz CAST NONE SEEN Normal NONE SEEN [facility] Comment on above: Performed By: #### U AMIC #### [facility] [address] [place] [address] Dr. Rosa Soliz Clarity (U) CLEAR Normal CLEAR [facility] Comment on above: Performed By: #### U AMIC #### [facility] [address] [place] [address] Dr. Rosa Soliz Color (U) LT. YELLOW Normal YELLOW [facility] Comment on above: Performed By: #### U AMIC #### [facility] [address] [place] [address] Dr. Rosa Soliz Crystals LM Nom (Urine sed) SEEN Abnormal NONE SEEN [facility] Comment on above: Performed By: #### U AMIC #### [facility] [address] [place] [address] Dr. Rosa Soliz Epithelial cells LM Ql (Urine sed) FEW Abnormal NONE SEEN /RARE [facility] Comment on above: Performed By: #### U AMIC #### [facility] [address] [address] [address] Rosa Soliz Glucose Ql (U) Negative Normal NEGATIVE [facility] Comment on above: Performed By: #### U AMIC #### [facility] [address] [address] [address] Rosa Soliz Hemoglobin Ql (U) Negative Normal NEGATIVE [facility] Comment on above: Performed By: #### U AMIC #### [facility] [address] [address] [address] Rosa Soliz Ketones Ql (U) Negative Normal NEGATIVE [facility] Comment on above: Performed By: #### U AMIC #### [facility] [address] [address] [address] Rosa Soliz LEUKOCYTES MODERATE Abnormal NEGATIVE [facility] Comment on above: Performed By: #### U AMIC #### [facility] [address] [address] [address] Rosa Soliz MUCOUS NONE SEEN Normal NONE SEEN [facility] Comment on above: Performed By: #### U AMIC #### [facility] [address] [address] [address] Rosa Soliz Nitrite Ql (U) Negative Normal NEGATIVE [facility] Comment on above: Performed By: #### U AMIC #### [facility] [address] [address] [address] Rosa Soliz pH (U) 6.0 [pH] Normal 5-9 [facility] Comment on above: Performed By: #### U AMIC #### [facility] [address] [address] [address] Rosa Soliz RBC 2-5 Abnormal 0-2 [facility] Comment on above: Performed By: #### U AMIC #### [facility] [address] [place] [address] Dr. Rosa Soliz SPEC GRAVITY 1.020 Normal 1.005-<=1.02 5 [facility] Comment on above: Performed By: #### U AMIC #### [facility] [address] [address] [address] Rosa Soliz UA PROTEIN Negative Normal NEGATIVE/ TRACE [facility] Comment on above: Performed By: #### U AMIC #### [facility] [address] [id number] Rosa Soliz Urobilinogen Qn (U) 0.2 {Jimy'U}/dL Normal 0.2 - 1. 0 [facility] Comment on above: Performed By: #### U AMIC #### [facility] [address] [address] [address] Rosa Soliz WBC 20-50 Abnormal NONE SEEN [facility] Comment on above: Performed By: #### U AMIC #### [facility] [address] [address] [address] Rosa Soliz VITAMIN B12on 08-30-2021 Cobalamin (Vitamin B12) [Mass/Vol] 744.0 pg/mL Normal 239.0-931.0 [facility] Comment on above: Performed By: #### U AMIC #### [facility] [address] [address] [address] Rosa Soliz Coding Summaryon 08-28-2019 Coding Summary CODING DATE: 08/28/2019 [facility] STATUS: Home PAYOR: Medicare ADMIT DX: REASON FOR VISIT DX: M54.16 Radiculopathy, lumbar region FINAL DX: PRINCIPAL: M54.16 Radiculopathy, lumbar region SECONDARY: PYMT PROC APC STAT DESCRIPTION DOCTOR NAME DATE NOTE: The code number assigned matches the documented diagnosis and / or procedure in the patient's chart. However, the narrative phrase printed from the coding software may appear abbreviated, or result in slightly different terminology. Coded By: Shante Sanders Date Saved: 08/28/2019 01:03 pm [facility] Consent Formson 08-28-2019 Consent Forms [id number]#[id number] 0OTGTIFF [facility] Medication Managementon Medication Management [id number] 0OTGTIFF [facility] Anesthesia Noteon 08-27-2019 Anesthesia Note Patient: SANDRA HAMMOND Age: 54 years Sex: FEMALE : 1965 Associated Diagnoses: None Author: León Santoro MD Postoperative Information Anesthetic utilized: Monitored anesthesia care. Assessment Anesthetic outcome No anesthetic complications noted. Plan Transfer/ Discharge: Patient can be discharged from PACU when criteria met. Condition good. [Electronically Signed on: 08/27/2019 12:54 EST] León Santoro MD [Verified on: 08/27/2019 12:54 EST] León Santoro MD [facility] Anesthesia Note Patient: SANDRA HAMMOND Age: 54 years Sex: FEMALE : 1965 Associated Diagnoses: None Author: León Santoro MD Preoperative Information Anesthesia history: Family history. Patient history: No prior anesthesia problems. Review of Systems Constitutional: Negative. Cardiovascular: No Chest Pain. No SOB. Health Status Allergies: Allergic Reactions (All) No Known Medication Allergies Current medications: Home Medications (6) Active CeleBREX 200 mg oral capsule 200 mg = 1 cap(s), PO, Daily Cymbalta 30 mg oral delayed release capsule 30 mg = 1 cap(s), PO, Daily Cymbalta 60 mg oral delayed release capsule 60 mg = 1 cap(s), PO, Daily Imitrex 100 mg oral tablet 100 mg = 1 tab(s), PO, Daily Percocet 5/325 oral tablet 1 tab(s), PRN, PO, Daily PriLOSEC OTC 20 mg oral delayed release tablet 20 mg = 1 tab(s), PO, Daily Problem list (past medical history): All Problems Anxiety / SNOMED CT 58136682 / Confirmed Cervical radiculitis / SNOMED CT 68893502 / Confirmed Cervical spondylosis / SNOMED CT 9718649411 / Confirmed Lower back pain / SNOMED CT 380897672 / Confirmed Lumbar radiculopathy / SNOMED CT 029962919 / Confirmed Migraines / SNOMED CT 98684477 / Confirmed Cervicalgia / SNOMED CT 329666931 / Confirmed Cervical paraspinal muscle spasm / SNOMED CT 3223239742 / Confirmed Histories Family History: No family history items have been selected or recorded. Procedure history: LESI on 08/27/2019 at 54 Years. Cervical Epidural Steroid Injection on 01/29/2019 at 53 Years. Left C3,4,5,6 RFA on 02/27/2018 at 53 Years. PHIL on 05/16/2017 at 52 Years. cervical epidural steroid injection on 10/11/2016 at 51 Years. Cervical trigger point injections on 09/11/2016 at 51 Years. left cervical Radiofrequency ablation C4,5,6,7 on 05/30/2016 at 51 Years. left cervical medial branch block C4,5,6,7 on 02/22/2016 at 50 Years. left cervical medial branch block C4,5,6,7 on 01/11/2016 at 50 Years. cervical epidural steroid injection on 11/23/2015 at 50 Years. hysterectomy. csection. #1 left C3,4,5,6 MBB. Social History Electronic Cigarette/Vaping Assessment Electronic Cigarette Use: Never. Tobacco Assessment Former smoker, quit more than 30 days ago Tobacco Use:. . Social & Psychosocial Habits Tobacco 08/27/2019 Smoking tobacco use: Former smoker, quit more Electronic Cigarette/Vaping 05/27/2019 Electronic Cigarette Use: Never . Physical Examination Airway: Mallampati classification: II (soft palate, fauces, uvula visible). Temporomandibular joint mobility: Good. Respiratory: Lungs are clear to auscultation. Cardiovascular: Regular rhythm. Neurologic: Alert, Oriented. Review / Management Laboratory Results Plan [place] [employer]#(ASA ) physical status classification: Class II. Anesthetic Preoperative Plan Anesthesia: Monitored anesthesia care. Anesthetic plan, risks, benefits, and alternatives discussed with the patient and/or family. Patient verbalized understanding. Informed consent was given. Anesthetic technique: Monitored anesthesia care. [Electronically Signed on: 08/27/2019 12:46 EST] León Santoro MD [Verified on: 08/27/2019 12:46 EST] León Santoro MD [facility] History and Physicalon 08-27 History and Physical Patient: SANDRA ROSARIO Age: 54 years Sex: FEMALE : 1965 Associated Diagnoses: None Author: Jarod Villarreal MD Chief Complaint leg pain bilateral Review of Systems Constitutional: Negative. Eye: Negative. Ear/Nose/Mouth/Throat: Negative. Respiratory: Negative. Cardiovascular: Negative. Gastrointestinal: Negative. Genitourinary: Negative. Integumentary: Negative. Neurologic: Negative. Psychiatric: Negative. Health Status Allergies: Allergic Reactions (All) No Known Medication Allergies, Allergies (1) Active Reaction No Known Medication Allergies None Documented Current medications: (Selected) Inpatient Medications Ordered Sodium Chloride 0.9% intravenous solution 500 mL: 20 mL/hr, IV Prescriptions Prescribed CeleBREX 200 mg oral capsule: 200 mg = 1 cap(s), PO, Daily, tablets ok, generic med ok, 30 tab(s), 3 Refill(s) Cymbalta 30 mg oral delayed release capsule: 30 mg = 1 cap(s), PO, Daily, at bedtime, 30 cap(s), 0 Refill(s) Percocet 5/325 oral tablet: 1 tab(s), PO, Daily, ok to fill., PRN: for pain, 30 tab(s), 0 Refill(s) Documented Medications Documented Cymbalta 60 mg oral delayed release capsule: 60 mg, 1 cap(s), PO, Daily Imitrex 100 mg oral tablet: 100 mg, 1 tab(s), PO, Daily, prn for pain, 0 Refill(s) PriLOSEC OTC 20 mg oral delayed release tablet: 20 mg, 1 tab(s), PO, Daily, 0 Refill(s), Home Medications (6) Active CeleBREX 200 mg oral capsule 200 mg = 1 cap(s), PO, Daily Cymbalta 30 mg oral delayed release capsule 30 mg = 1 cap(s), PO, Daily Cymbalta 60 mg oral delayed release capsule 60 mg = 1 cap(s), PO, Daily Imitrex 100 mg oral tablet 100 mg = 1 tab(s), PO, Daily Percocet 5/325 oral tablet 1 tab(s), PRN, PO, Daily PriLOSEC OTC 20 mg oral delayed release tablet 20 mg = 1 tab(s), PO, Daily , Medications (1) Active Scheduled: (0) Continuous: (1) Sodium Chloride 0.9% intravenous solution 500 mL 500 mL, IV, 20 mL/hr PRN: (0) Problem list (past medical history): All Problems Anxiety / SNOMED CT 08013668 / Confirmed Cervical paraspinal muscle spasm / SNOMED CT 6014066051 / Confirmed Cervical radiculitis / SNOMED CT 62362568 / Confirmed Cervical spondylosis / SNOMED CT 4191255543 / Confirmed Cervicalgia / SNOMED CT 654187706 / Confirmed Lower back pain / SNOMED CT 461011334 / Confirmed Lumbar radiculopathy / SNOMED CT 777898872 / Confirmed Migraines / SNOMED CT 09334744 / Confirmed, Active Problems (8) Anxiety Cervical paraspinal muscle spasm Cervical radiculitis Cervical spondylosis Cervicalgia Lower back pain Lumbar radiculopathy Migraines Histories Family History: No family history items have been selected or recorded. Procedure history: LESI on 08/27/2019 at 54 Years. Cervical Epidural Steroid Injection on 01/29/2019 at 53 Years. Left C3,4,5,6 RFA on 02/27/2018 at 53 Years. PHIL on 05/16/2017 at 52 Years. cervical epidural steroid injection on 10/11/2016 at 51 Years. Cervical trigger point injections on 09/11/2016 at 51 Years. left cervical Radiofrequency ablation C4,5,6,7 on 05/30/2016 at 51 Years. left cervical medial branch block C4,5,6,7 on 02/22/2016 at 50 Years. left cervical medial branch block C4,5,6,7 on 01/11/2016 at 50 Years. cervical epidural steroid injection on 11/23/2015 at 50 Years. hysterectomy. csection. #1 left C3,4,5,6 MBB. Social History Social & Psychosocial Habits Tobacco 08/27/2019 Smoking tobacco use: Former smoker, quit more Electronic Cigarette/Vaping 05/27/2019 Electronic Cigarette Use: Never . Physical Examination VS/Measurements Vital Signs 08/27/2019 11:00 EST Temperature Temporal Artery 36.9 DegC Peripheral Pulse Rate 68 bpm Respiratory Rate 16 br/min Systolic Blood Pressure 111 mmHg Diastolic Blood Pressure 71 mmHg SpO2 97 % Oxygen Therapy Room air , Vital Signs (last 24 hrs) Last Charted Heart Rate Peripheral 68 bpm (AUG 27 11:00) Resp Rate 16 br/min (AUG 27:) SBP 111 mmHg (AUG 27:) DBP 71 mmHg (AUG 27:) SpO2 97 % (AUG 27:) Weight 76.900 kg (AUG 27:00) Height 155 cm (AUG 27:) , Measurements from flowsheet : Measurements 08/27/2019 11:00 EST Height 155.000 cm Height/Length Dosing 155.000 cm Weight 76.900 kg Weight Dosing 76.900 kg Body Mass Index 32.010 kg/m2 General: Alert and oriented. Eye: Pupils are equal, round and reactive to light. HENT: Normocephalic. Neck: Supple. Respiratory: Lungs are clear to auscultation. Cardiovascular: Normal rate. Gastrointestinal: Soft, Non-tender, Non-distended. Integumentary: Warm, Dry, [place]. Neurologic: Alert, Oriented. Psychiatric: Cooperative. Impression and Plan Lumbar Radiculopathy Procedure explained to patient along with risks of possible complications and patient wishes to proceed. [Electronically Signed on: 08/27/2019 12:44 EST] Jarod Villarreal MD [Verified on: 08/27/2019 12:44 EST] Jarod Villarreal MD [facility] Inpatient Patient Summaryon 08-27-2019 [place] [address] Patient Discharge Instructions Name: SANDRA HAMMOND : 1965 Patient Address: [address] [place] [address] Primary Care Provider: Name: Nadia Stallworth CNP After you are discharged if you find you have any questions, please, call [phone] ext [phone] to speak to a nurse. Discharge Diagnosis: Lower back pain; Lumbar radiculopathy Prescription Information: If you have been given a prescription for narcotics, seek immediate medical attention if you have any difficulty breathing or any sudden status changes such as confusion and sleepiness. If you or anyone you know is experiencing suicidal thoughts, mental health, alcohol and/or drug addiction problems; contact the [facility] 12/02 Crisis Hotline -text 4HCZU to 665645. If you received any narcotics, sedation, or any other medication that causes drowsiness for the next 24 hours, unless otherwise directed: ? Do not drive a car. ? Do not operate machinery such as power tools, lawn mowers, drills, sewing machines, or stoves ? Avoid alcoholic beverages and drugs for allergies, nerves, or sleep ? Do not make important personal or business decisions or sign any legal documents [facility] would like to thank you for allowing us to assist you with your healthcare needs. The following includes patient education materials and information regarding your injury/illness. SANDRA HAMMOND has been given the following list of follow-up instructions, prescriptions, and patient education materials: Follow-up Instructions Medications During the course of your visit, your medication list was updated with the most current information. The details of those changes are reflected below: Medications to Continue That Have Not Changed Other Medications acetaminophen-oxycodon e (Percocet 5/325 oral tablet) 1 tab(s) Oral every day as needed for pain. ok to fill.. Refills: 0. celecoxib (CeleBREX 200 mg oral capsule) 1 cap(s) Oral every day. tablets ok, generic med ok. Refills: 3. DULoxetine (Cymbalta 30 mg oral delayed release capsule) 1 cap(s) Oral every day. at bedtime. Refills: 0. DULoxetine (Cymbalta 60 mg oral delayed release capsule) 1 cap(s) Oral every day. omeprazole (PriLOSEC OTC 20 mg oral delayed release tablet) 1 tab(s) Oral every day. SUMAtriptan (Imitrex 100 mg oral tablet) 1 tab(s) Oral every day. prn for pain. It is important to always keep an active list of medications available so that you can share with other providers and manage your medications appropriately. As an additional courtesy, we are also providing you with your final active medications list that you can keep with you. acetaminophen-oxycodon e (Percocet 5/325 oral tablet) 1 tab(s) Oral every day as needed for pain. ok to fill.. Refills: 0. celecoxib (CeleBREX 200 mg oral capsule) 1 cap(s) Oral every day. tablets ok, generic med ok. Refills: 3. DULoxetine (Cymbalta 30 mg oral delayed release capsule) 1 cap(s) Oral every day. at bedtime. Refills: 0. DULoxetine (Cymbalta 60 mg oral delayed release capsule) 1 cap(s) Oral every day. omeprazole (PriLOSEC OTC 20 mg oral delayed release tablet) 1 tab(s) Oral every day. SUMAtriptan (Imitrex 100 mg oral tablet) 1 tab(s) Oral every day. prn for pain. Take only the medications listed above. Contact your doctor prior to taking any medications not on this list. Diet & Activity Patient Activity Level: Patient Diet: Patient Activity Restrictions: Comment: Patient education materials, if any, will display below Pain Procedure Home Care Instructions For the next 24 hours, DO NOT do any of the following activities: ? Drive a car or operate heavy machinery ? Drink alcoholic beverages ? Make legal decisions or sign any contracts ? Do not remove the bandage or dressing for 24 hours Apply ice to the injection site every 15 minutes at a time with a barrier between your skin and the ice element for protection, repeat as often as needed. There may be immediate pain relief after the procedure. Then 4-6 hours after the local anesthetic wears off, the pain may return. Do not take a shower for the first 12 hours after the procedure, no bath for 24 hours. Call your family physician if your blood sugar is greater than 250 Go to the Emergency Department if you lose control of your bowel, bladder, or legs, or have new severe pain or marked increase in pain Call the office if you have any questions. Dr. Villarreal ? Pain Scale DAY 1 DAY 2 DAY 3 DAY 4 DAY 5 DAY 6 DAY 7 AM AFTERNOON PM Please rate your pain each day AM, Afternoon, and PM on a scale of 0-10, with 10 being the worst pain and 0 being no pain. Please bring this scale with you to your first appointment after your procedure Viruses or Bacteria What?s got you sick? Antibiotics only treat bacterial infections. Viral illnesses cannot be treated with antibiotics. When an antibiotic is not prescribed, ask your healthcare professional for tips on how to relieve symptoms and feel better. Usual Cause Illness Viruses Bacteria Antibiotic Needed Cold/Runny Nose NO Bronchitis/Chest Cold (in otherwise healthy children and adults) NO Whooping Cough Yes Flu NO Strep Throat Yes Sore Throat (except strep) NO Fluid in the middle ear (otitis media with effusion) NO Urinary Tract Infection Yes Antibiotics Aren?t Always the Answer www.cdc.gov/getsmart GET SMART Know When Antibiotics Work [place] Department of Health and Human Services Centers for Disease Control and Prevention March 2014 [facility] MAGR Intraoperative Recordon 08-27-2019 [facility] Intraoperative Record MAG[facility] Intra-Op Record Summary Primary Physician: Jarod Villarreal MD Finalized Date/Time: 08/27/19 12:55:08 Pt. Name: SANDRA HAMMOND MELANIE WelchO.B./Sex: 1965 FEMALE Med Rec #: [id number] Physician: Jarod Villarreal MD Financial #: [id number] Pt. Type: D Room/Bed: / Admit/Disch: 08/27/19 10:37:00 - Institution: Case Times MAGR Entry 1 Patient In Room Time 08/27/19 12:48:00 Out Room Time 08/27/19 12:54:00 Anesthesia Start Time 08/27/19 12:47:00 Stop Time 08/27/19 12:53:00 Surgery Start Time 08/27/19 12:49:00 Stop Time 08/27/19 12:51:00 Last Modified By: Stephanie Humphries RN 08/27/19 12:54:26 Case Attendance MAGR Entry 1 Entry 2 Entry 3 Case Attendee Jarod Villarreal MD, William MD Jasenak RN, Stephanie Stoddard Role Performed Surgeon - Primary Anesthesiologist of Cosmetic Sales Advisor Record Time In 08/27/19 12:48:00 08/27/19 12:48:00 08/27/19 12:48:00 Time Out 08/27/19 12:54:00 08/27/19 12:54:00 08/27/19 12:54:00 Procedure Epidural Steroid Epidural Steroid Epidural Steroid Injection Injection Injection Last Modified By: Kristel PAN, Stephanie Humphries RN, Stephanie Humphries RN, Stephanie Stoddard 08/27/19 12:54:30 08/27/19 12:54:30 08/27/19 12:54:30 Entry 4 Entry 5 Entry 6 Case Attendee Ishmael PAN, La Sanders, Celestina Browne CST Role Performed Cosmetic Sales Advisor Cosmetic Sales Advisor Scrub Personnel Time In 08/27/19 12:48:00 08/27/19 12:48:00 08/27/19 12:48:00 Time Out 08/27/19 12:54:00 08/27/19 12:54:00 08/27/19 12:54:00 Procedure Epidural Steroid Epidural Steroid Epidural Steroid Injection Injection Injection Last Modified By: Kristel PAN, Stephanie Humphries RN, Stephanie Humphries RN, Stephanie Stoddard 08/27/19 12:54:30 08/27/19 12:54:30 08/27/19 12:54:30 Entry 7 Case Attendee León Keith Role Performed Pest Technician Time In 08/27/19 12:48:00 Time Out 08/27/19 12:54:00 Procedure Epidural Steroid Injection Last Modified By: Stephanie Humphries RN 08/27/19 12:54:30 Surgical Procedures MAGR Pre-Care Text: A.20 Verifies operative procedure, surgical site, and laterality Im.150 Develops individualized plan of care Entry 1 Procedure Epidural Steroid Primary Procedure Yes Injection Primary Surgeon Jarod Villarreal MD Surgeon Comment Lumbar Epidural Steroid Injection L5,S1 Start 08/27/19 12:49:00 Stop 08/27/19 12:51:00 Anesthesia Type MAC Surgical Service Pain Management Wound Class Clean Technique Details Closure Technique N/A Entire procedure No was performed via laparoscope or robotic assistance Last Modified By: Stephanie Humphries RN 08/27/19 12:54:35 Post-Care Text: O.730 The patient's care is consistent with the individualized perioperative plan of care General Case Data MAGR Pre-Care Text: A.350.1 Classifies surgical wound Entry 1 Case Information OR MAGR OR 02 Case Level None Wound Class Clean Specialty Pain Management ASA Class 2 Diagnosis Preop Diagnosis XX Postop Same As Preop Yes Postop Diagnosis XX Blunt or No Is the procedure No penetrating injury considered occured prior to Emergent/Urgent? the start of the procedure: Last Modified By: Stephanie Humphries RN 08/27/19 12:54:57 Post-Care Text: O.760 Patient receives consistent and comparable care regardless of the setting Time Out MAGR Entry 1 Time out date/time 08/27/19 12:48:00 All team members Yes have introduced themselves by name and role Surgeon, Yes Surgeon reviews Yes anesthesia, nurse critical or confirm patient, unexpected steps, site, procedure operative duration, anticipated blood loss Anesthesia team Yes Nursing team Yes reviews any reviews sterility patient-specific (including concerns indicator results) and equipment issues/concerns Antibiotic Antibiotic N/A prophylaxis given within the last 60 minutes Is essential Yes imaging displayed? Last Modified By: Stephanie Humphries RN 08/27/19 12:48:57 Patient Positioning MAGR Pre-Care Text: A.280 Identifies baseline musculoskeletal status Im.40 Positions the patient Im.80 Applies safety devices Entry 1 Procedure Epidural Steroid Body Position Prone Injection Left Arm Position Resting at Side Right Arm Position Resting at Side Left Leg Position Extended Right Leg Position Extended Feet Uncrossed? Yes Press Points Checked Yes Positioning Device Pillow, Safety Strap Outcome Met (O.80) Yes Last Modified By: Stephanie Humphries RN 08/27/19 12:40:04 Post-Care Text: E.290 Evaluates musculoskeletal status O.80 Patient is free from signs and symptoms of injury related to positioning Skin Prep MAGR Pre-Care Text: A.30 Verifies allergies Im.270 Performs skin preparation Im.270.1 Implements protective measures to prevent skin and tissue injury due to chemical sources Entry 1 Skin Prep Syntegrity Prep Agents (Im.270) Povidone-Iodine Prep By Celestina Mathur CONVENTIONAL MACHINIST Prep Area (Im.270) Back Skin Prep Agent Dry Yes Without Pooling Hair Removal Syntegrity Hair Removal Methods No hair removal performed Outcome Met (O.100) Yes Last Modified By: Stephanie Humphries RN 08/27/19 12:43:48 Post-Care Text: E.10 Evaluates for signs and symptoms of physical injury to skin and tissue O.100 Patient is free from signs and symptoms of chemical injury X-Rays and Images MAGR Pre-Care Text: A.240 Assesses baseline skin condition A.240.1 Assesses history of previous radiation exposure Im.110 Implements protective measures to prevent injury due to radiation sources Entry 1 Site Back lower X-Ray Type C-Arm Protective Devices Yes Outcome Met (O.110) Yes Used Last Modified By: Stephanie Humphries RN 08/27/19 12:43:56 Post-Care Text: E.10 Evaluates for signs and symptoms of physical injury to skin and tissue O.110 Patient is free from signs and symptoms of radiation injury Dressing/Packing MAGR Pre-Care Text: A.350 Assesses susceptibility for infection Im.290 Administer care to wound sites Entry 1 Skin Prep Agent No Site Back lower Removed Prior to Dressing? Site Details Bilateral Dressing Item Details Dressing Item 2x2's Tape (Im.290) Transparent (Im.290) Outcome Met Yes Last Modified By: Stephanie Humphries RN 08/27/19 12:41:10 Post-Care Text: E.200 Evaluates progress of wound healing O.200 Patient's wound perfusion is consistent with or improved from baseline levels Departure from OR MAGR Entry 1 Present on Depart Oxygen Via Stretcher Post-op Destination PACU Skin DFO Condition Dry Description Condition Warm Description Condition Intact Description Report Given To Wandy Mcelroy RN Airway Maintenance Patient Status Stable Oxygen in Use? Yes Airway Device Nasal cannula Flow Rate 3 L/min Last Modified By: Stephanie Humphries RN 08/27/19 12:41:23 Case Comments Finalized By: Stephanie Humphries RN Document Signatures Signed By: Stephanie Humphries RN 08/27/19 [facility]2019 MAGR Preoperative Record MAGR Pre-Op Rec ord Summary Primary Physician: Jarod Villarreal MD Finalized Date/Time: 08/27/19 13:13:05 Pt. Name: SANDRA HAMMOND /Sex: 1965 FEMALE Med Rec #: [id number] Physician: Jarod Villarreal MD Financial #: [id number] Pt. Type: D Room/Bed: / Admit/Disch: 08/27/19 10:37:00 - 08/27/19 13:08:00 Institution: Pre-Op Case Times MAGR Pre-Care Text: Patient will be optimally prepared for surgery. Patient is free from s/s of injury. Provide information to patient/family related to plan of care. Verify patient allergies. Confirm identity and verify consent before the operative or invasive procedure. Entry 1 Patient Arrival Time 08/27/19 10:59:00 Preop Departure 08/27/19 12:35:00 Last Modified By: Annalisa Coates RN 08/27/19 13:13:02 Post-Care Text: Patient is prepared mentally and physically and is ready for surgery. The patient remains free from s/s of injury. Patient/family express understanding of plan of care and participate in decisions affecting his or her perioperrative plan of care. Allergies documented appropriately. Patient identifiers and consent correct. General Comments: Pt arrives to [facility] ambulatory. PT has back pain #8, pt denies cp, sob,c ough or flu like symptoms. Pt denies pacemake/defibillator or sleep apnea. Finalized By: Annalisa Coates RN Document Signatures Signed By: Annalisa Coates RN 08/27/19 13:13 [facility] Operative Report - Surgeon/P chano 08-27-2019 Operative Report - Surgeon/Physician Patient: SANDRA HAMMOND Age: 54 years Sex: FEMALE : 1965 Associated Diagnoses: None Author: Jarod Villarreal MD Preoperative Diagnosis: Lumbar Neuritis Lumbar Radiculopathy Postoperative Diagnosis: Same Procedure Performed: Lumbar Epidural Steroid Injection under fluoroscopy Surgeon: Dr. Villarreal Anesthesia: MAC Estimated Blood Loss: 1 ml Complications: None Description of procedure: Risks, benefits, and alternatives were reviewed with the patient. All questions were answered appropriately. Subsequent to obtaining consent, the patient was taken to the operative room. Time out was called. The operative site and procedure were confirmed with the patient. The patient was then placed in a prone position and betadine was applied to the lumbar spine and sterile Under fluoroscopic guidance, local infiltration with lidocaine was performed. An 18 gauge touhy needle was advanced translaminarly until it came to rest in the epidural space using the loss of resistance technique at the level of L 4 - 5. Once the epidural space was identified, negative hem, negative cerebral spinal fluid was noted. 1 ml of Omnipaque 300 was injected which demonstrated appropriate epidural spread with negative vascular, negative cerebral spinal fluid uptake. Depo Medrol 80 mg was injected into the epidural space for a total volume of 10 ml. Negative hem and negative cerebral spinal fluid was confirmed throughout the procedure. The needle was withdrawn. The patient tolerated the procedure well, without any overt complications and was taken to the recovery room. Home going instructions were given to the patient and the importance of pain diary for follow up was explained prior to procedure. [Electronically Signed on: 08/27/2019 12:52 EST] Jarod Villarreal MD [Verified on: 08/27/2019 12:52 EST] Jarod Villarreal MD [facility] Patient Handouton 08-27-2019 Patient Handout Pain Procedure Home Care Instructions For the next 24 hours, DO NOT do any of the following activities: ? Drive a car or operate heavy machinery ? Drink alcoholic beverages ? Make legal decisions or sign any contracts ? Do not remove the bandage or dressing for 24 hours Apply ice to the injection site every 15 minutes at a time with a barrier between your skin and the ice element for protection, repeat as often as needed. There may be immediate pain relief after the procedure. Then 4-6 hours after the local anesthetic wears off, the pain may return. Do not take a shower for the first 12 hours after the procedure, no bath for 24 hours. Call your family physician if your blood sugar is greater than 250 Go to the Emergency Department if you lose control of your bowel, bladder, or legs, or have new severe pain or marked increase in pain Call the office if you have any questions. Dr. Villarreal ? Pain Scale DAY 1 DAY 2 DAY 3 DAY 4 DAY 5 DAY 6 DAY 7 AM AFTERNOON PM Please rate your pain each day AM, Afternoon, and PM on a scale of 0-10, with 10 being the worst pain and 0 being no pain. Please bring this scale with you to your first appointment after your procedure Normal [facility] Vital Signs Date Time Vital Sign Value Performing Clinician Facility 08-23-2023 15:43-0500 Body height 154.9 cm Sandra Ho APPLICATIONS SALES REPRESENTATIVE Work Phone: [facility] 08-23-2023 15:43-0500 Body mass index (BMI) [Ratio] 36.96 kg/m2 Sandra Ho APPLICATIONS SALES REPRESENTATIVE Work Phone: [facility] 08-23-2023 15:43-0500 Body temperature 97.5 [degF] Sandra Ho APPLICATIONS SALES REPRESENTATIVE Work Phone: [facility] 08-23-2023 15:43-0500 Body weight 88.72 kg Sandra Ho APPLICATIONS SALES REPRESENTATIVE Work Phone: [facility] 08-23-2023 15:43-0500 Diastolic blood pressure 78 mm[Hg] Sandra Ho APPLICATIONS SALES REPRESENTATIVE Work Phone: [facility] 08-23-2023 15:43-0500 Heart rate 82 /min Sandra Ho APPLICATIONS SALES REPRESENTATIVE Work Phone: [facility] 08-23-2023 15:43-0500 Respiratory rate 18 /min Sandra Ho APPLICATIONS SALES REPRESENTATIVE Work Phone: [facility] 08-23-2023 15:43-0500 SaO2% (BldA) [Mass fraction] 97 % Sandra Burgesscolton APPLICATIONS SALES REPRESENTATIVE Work Phone: [facility] 08-23-2023 15:43-0500 Systolic blood pressure 108 mm[Hg] Sandra Burgesscolton APPLICATIONS SALES REPRESENTATIVE Work Phone: [facility] 01-16-2022 11:14-0400 Diastolic blood pressure 72 mm[Hg] MD Katey Bryant Work Phone: [facility] 01-16-2022 11:14-0400 Heart rate 68 /min MD Katey Bryant Work Phone: [facility] 01-16-2022 11:14-0400 Inhaled oxygen flow rate 0 L/min MD Katey Bryant Work Phone: [facility] 01-16-2022 11:14-0400 Respiratory rate 16 /min MD Katey Bryant Work Phone: [facility] 01-16-2022 11:14-0400 SaO2% (BldA) [Mass fraction] 99 % MD Katey Braynt Work Phone: [facility] 01-16-2022 11:14-0400 Systolic blood pressure 126 mm[Hg] MD Katey Bryant Work Phone: [facility] 01-16-2022 10:02-0400 Body temperature 98.4 [degF] MD Katey Bryant Work Phone: [facility] 01-16-2022 07:16-0400 Body height 154.94 cm MD Katey Bryant Work Phone: [facility] 01-16-2022 07:16-0400 Body mass index (BMI) [Ratio] 34.5 kg/m2 MD Katey Bryant Work Phone: [phone] [place] [address] 01-16-2022 07:16-0400 Body weight 83 kg MD Katey Bryant Work Phone: [facility] Encounters Encounter Date Encounter Type Care Provider Facility Start: 10-30-2023 End: 10-30-2023 ambulatory SANDRA HO Not Available Start: 08-23-2023 End: 08-23-2023 ambulatory SANDRA ADITYAHOLZ Not Available Start: 08-23-2023 End: 08-23-2023 Office outpatient visit 25 minutes Sandra Ho APPLICATIONS SALES REPRESENTATIVE Work Phone: [facility] Comment on above: Hyperparathyroidism (CMS/HCC) (Primary Dx); BMI 36.0-36.9,adult; Hyperparathyroidism, unspecified (E21.3); Major depressive disorder, recurrent, mild (F33.0); Chronic fatigue; Nontoxic single thyroid nodule (CMS/HCC); Vitamin D deficiency; Weight gain; Screening for colon cancer Start: 08-23-2023 Bamboo flowsheet Sandra Ho APPLICATIONS SALES REPRESENTATIVE Work Phone: [facility] Start: 08-23-2023 Bamboo flowsheet Sandra Vic APPLICATIONS SALES REPRESENTATIVE Work Phone: [facility] Start: 07-26-2023 End: 07-26-2023 ambulatory SANDRA VIC Not Available Start: 09-13-2022 End: 09-13-2022 ambulatory Sandra J Martyhholz Facility:[facility] Start: 09-13-2022 End: 09-13-2022 ambulatory Sandra J Adityaholz Work Phone: [facility] Work Phone: Start: 09-13-2022 End: 09-13-2022 Patient encounter procedure Sandra Ho Work Phone: [facility] [place] Work Phone: Start: 01-24-2022 End: 01-24-2022 ambulatory Sandra J Martyhholz Facility:[facility] Start: 01-16-2022 End: 01-16-2022 ambulatory Sandra J Aichholz Facility:[facility] Start: 01-16-2022 End: 01-16-2022 Admission to same day surgery center MD Katey Bryant Work Phone: [facility] [place] Start: 01-12-2022 End: 01-12-2022 ambulatory Sandra Ho Facility:[facility] Start: 01-12-2022 End: 01-12-2022 Patient encounter procedure MD Katey Bryant Work Phone: [facility] Start: 12-29-2021 End: 12-29-2021 ambulatory Sandra Ho Facility:[facility] Start: 12-29-2021 End: 12-29-2021 Patient encounter procedure MD Katey Bryant Work Phone: [facility] Start: 12-12-2021 End: 12-12-2021 ambulatory KATEY BRYANT Facility:[facility] Start: 12-06-2021 End: 12-07-2021 ambulatory KATEY BRYANT Facility:[facility] Start: 10-31-2021 End: 11-01-2021 ambulatory SUGAR GRINDER SANDRA [place] Facility:[facility] Start: 09-07-2021 End: 09-08-2021 ambulatory SUGAR GRINDER SANDRA VIC Facility:[facility] Start: 08-31-2021 End: 08-31-2021 ambulatory SUGAR GRINDER SANDRA VIC Facility:[facility] Start: 08-30-2021 End: 08-31-2021 ambulatory SUGAR GRINDER SANDRA VIC Facility:[facility] Procedures Date Procedure Procedure Detail Performing Clinician Start: 01-16-2022 Lobectomy of thyroid gland MD Katey Bryant Work Phone: Start: 12-29-2021 Dual energy X-ray absorptiometry MD Katey Bryant Work Phone: Start: 08-31-2021 Microscopic observat ion [Identifier] in Cervix by Cyto stain Sandra Ho APPLICATIONS SALES REPRESENTATIVE Work Phone: Start: 08-29-2021 Mammography Sandra mckee APPLICATIONS SALES REPRESENTATIVE Work Phone: Plan of Treatment Date Care Activity Detail Author Start: 08-31-2024 Screening for malign ant neoplasm of cervix [facility] Start: 08-23-2024 Medicare Annual Well ness (AWV) Medicare Annual Wellness (AWV) [facility] Start: 08-23-2023 End: 08-23-2023 Patient encounter procedure 08/23/2023 3:40 PM EST Office Visit [facility] [address] [place] [address] Sandra Ho, ANDRAE [address] [place] [id number] Arrived [facility] Comment on above: Arrived Start: 08-23-2023 End: 08-23-2024 25-hydroxyvitamin D3 [Mass/volume] in Serum or Plasma Vitamin D 25 hydroxy Lab Routine Hyperparathyroidism, unspecified (E21.3) Vitamin D deficiency Expected: 08/23/2023 (Approximate), Expires: 08/23/2024 [facility] Comment on above: Expected: 08/23/2023 (Approximate), Expires: 08/23/2024 Start: 08-23-2023 End: 08-23-2024 CBC W Auto Differential panel - Blood CBC and differential Lab Routine Chronic fatigue Expected: 08/23/2023 (Approximate), Expires: 08/23/2024 [facility] Work Phone: Comment on above: Expected: 08/23/2023 (Approximate), Expires: 08/23/2024 Start: 08-23-2023 End: 08-23-2024 Cobalamin (Vitamin B12) [Mass/volume] in Serum or Plasma Vitamin B12 Lab Routine Chronic fatigue Expected: 08/23/2023 (Approximate), Expires: 08/23/2024 [facility] Comment on above: Expected: 08/23/2023 (Approximate), Expires: 08/23/2024 Start: 08-23-2023 End: 08-23-2024 Comprehensive metabolic 2000 panel - Serum or Plasma Comprehensive metabolic panel Lab Routine Hyperparathyroidism, unspecified (E21.3) Vitamin D deficiency Expected: 08/23/2023 (Approximate), Expires: 08/23/2024 [facility] Comment on above: Expected: 08/23/2023 (Approximate), Expires: 08/23/2024 Start: 08-23-2023 End: 08-23-2024 Hemoglobin A1c measurement Hemoglobin A1c Lab Routine Weight gain Expected: 08/23/2023 (Approximate), Expires: 08/23/2024 [facility] Comment on above: Expected: 08/23/2023 (Approximate), Expires: 08/23/2024 Start: 08-23-2023 End: 08-23-2024 Insulin, random Insulin, random Lab Routine Weight gain Expected: 08/23/2023 (Approximate), Expires: 08/23/2024 [facility] Comment on above: Expected: 08/23/2023 (Approximate), Expires: 08/23/2024 Start: 08-23-2023 End: 08-23-2024 Iron and Iron binding capacity panel - Serum or Plasma Iron level Lab Routine Chronic fatigue Expected: 08/23/2023 (Approximate), Expires: 08/23/2024 [facility] Comment on above: Expected: 08/23/2023 (Approximate), Expires: 08/23/2024 Start: 08-23-2023 End: 08-23-2024 Thyroid peroxidase and thyroglobulin antibodies Thyroid peroxidase and thyroglobulin antibodies Lab Routine Chronic fatigue Weight gain Expected: 08/23/2023 (Approximate), Expires: 08/23/2024 [facility] Comment on above: Expected: 08/23/2023 (Approximate), Expires: 08/23/2024 Start: 08-23-2023 End: 08-23-2024 Triiodothyronine (T3) Free [Mass/volume] in Serum or Plasma T3, free Lab Routine Chronic fatigue Weight gain Expected: 08/23/2023 (Approximate), Expires: 08/23/2024 [facility] Comment on above: Expected: 08/23/2023 (Approximate), Expires: 08/23/2024 Start: 08-23-2023 End: 08-23-2024 TSH W/REFLEX TO FT4 TSH W/REFLEX TO FT4 Lab Routine Chronic fatigue Weight gain Expected: 08/23/2023 (Approximate), Expires: 08/23/2024 [facility] Comment on above: Expected: 08/23/2023 (Approximate), Expires: 08/23/2024 Start: 03-23-2023 Influenza vaccination Influenza Vacc ine (#1) [facility] Start: 08-29-2022 Screening for malign ant neoplasm of breast Mammogram [facility] Start: 02-26-1996 Screening for malign ant neoplasm of cervix HPV/Cotest [facility] Start: 1965 Medicare Annual Well ness (AWV) Medicare Annual Wellness (AWV) [facility] Start: 1965 Screening for malign ant neoplasm of colon [facility] Noninvasive colorect al cancer DNA and occult blood screening [Presence] in Stool Cologuard colon cancer screening Lab Routine Screening for colon cancer Ordered: 08/23/2023 [facility] Comment on above: Ordered: 08/23/2023 Patient referral [facility] Work Phone: Immunizations Immunization Date Immunization Notes Care Provider [facility] 07-21-2013 influenza, seasonal, injectable Sandra Vic APPLICATIONS SALES REPRESENTATIVE Work Phone: [facility] 07-21-2013 influenza virus vacc ine, unspecified formulation Sandra Vic APPLICATIONS SALES REPRESENTATIVE Work Phone: [facility] 07-31-2012 seasonal influenza, intradermal, preservative free Sandra Vic APPLICATIONS SALES REPRESENTATIVE Work Phone: [facility] Payers Date Payer Category Payer Medicare [id number] 2023 Medicare [id number] 2021 Self-pay [id number] 2004 Medicare [id number] 1965 Unknown [id number] 2.16.84 [id number] 1965 Unknown [id number] 2.16.84 [id number] 1965 Unknown [id number] 2.16.84 [id number] 1965 Unknown [id number] 2.16.84 [id number] 1965 Unknown [id number] 2.16.84 [id number] 1965 Unknown [id number] 2.16.84 [id number] 1965 Unknown [id number] 2.16.84 [id number] 1965 Unknown [id number] 2.16.84 [id number] 1965 Unknown [id number] 2.16.840 .[id number] 1958 Medicare [id number] Medicaid Medicaid [id number] Medicare Medicare Outpatient [id number] 1A [id number] Unknown [id number] 2.16.8 [id number] Unknown [id number] 2.16.8 [id number] Unknown [id number] 2.16.8 [id number] Unknown [id number] 2.16.8 [id number] Unknown [id number] 2.16.8 [id number] Social History Date Type Detail [facility] Work Phone: Start: 1965 Sex Assigned At Female [facility] Start: 01-12-2022 End: 07-31-2023 Tobacco smoking status NHIS Ex-smoker (finding) [facility] End: 07-23-2016 History of tobacco use Current smoker [facility] End: 07-23-2016 History of tobacco use Cigarette Smoker [facility] Start: 07-31-2023 Tobacco use and exposure Smokeless tobacco non-user [facility] Start: 08-23-2023 Alcohol intake Ex-drinker (finding) [facility] Start: 07-26-2023 End: 08-23-2023 History of Social function [facility] Start: 07-26-2023 End: 08-23-2023 Tobacco use panel [facility] Start: 07-26-2023 Tobacco Comment Last smoked: >20 yea rs [facility] Start: 07-26-2023 Alcohol Comment caffeine 3-4 c ups per day [facility] Start: 1965 Sex Assigned At Not on file [facility] Goals Date Patient Goal Desired Activity /State History of Present illness Narrative 08-23-2023 Sandra Ho NP - 08/23/2023 4:29 PM Pradeep Ho NP - 08/23/2023 4:03 PM EDGAR ALCANTAR - 08/23/2023 3:40 PM Pradeep Ho NP - 08/23/2023 3:40 PM EST Note Date & Type Note Facility 08-23-2023 History of Presen t illness Narrative Associated Problem(s): Chronic fatigue No clear etiology, will check labs Differential: GABBIE, depression, anemia, thyroid issues Associated Problem(s): Hyperparathyroidism (CMS/HCC) Has surgery to remove, no further fu appts Having sinus pressure behind the eyes Been ongoing Wanting labs done for thyroid and hormones- she will take orders with her due to her insurance (not sure where they will cover her) No longer on medicare for the AWV Images from the original note were not included. Sandra Hammond is a 58 y.o. female presents with chief complaint of No chief complaint on file. HPI: Reports continued weight gain, would like her hormones checked too not sure if that is part of problem She had a complete hysterectomy age 30 d/t endometriosis Fatigue This is a chronic problem. The current episode started more than 1 year ago. The problem occurs constantly. The problem has been gradually worsening. Associated symptoms include fatigue. Pertinent negatives include no abdominal pain, anorexia, arthralgias, chest pain, chills, congestion, coughing, fever, headaches, joint swelling, myalgias, nausea, numbness, rash, sore throat, swollen glands, visual change or vomiting. Nothing aggravates the symptoms. She has tried nothing for the symptoms. SUBJECTIVE: MEDICATIONS: Current Outpatient Medications Medication Instructions b complex-vitamin C-vitamin E-zinc (Stress Formula/Zinc) tablet 1 tablet, Oral, Daily cholecalciferol (VITAMIN D-3) 2,000 Units, Oral, Daily DULoxetine (CYMBALTA) 30 mg, Oral, Nightly, Do not crush or chew. DULoxetine (CYMBALTA) 60 mg, Oral, Daily, Do not crush or chew. magnesium lactate CR (MAGTAB) 84 mg, Oral, Daily omeprazole (PRILOSEC) 20 mg, Oral, Daily before breakfast, Do not crush or chew. phytonadione (Vitamin K) 5 MG tablet Oral Turmeric (QC TUMERIC COMPLEX PO) Oral ALLERGIES: No Known Allergies REVIEW OF SYMPTOMS: Review of Systems Constitutional: Positive for fatigue. Negative for appetite change, chills and fever. HENT: Positive for sinus pressure. Negative for congestion, ear pain and sore throat. Eyes: Negative for pain, discharge, redness and visual disturbance. Respiratory: Negative for cough, shortness of breath and wheezing. Cardiovascular: Negative for chest pain, palpitations and leg swelling. Gastrointestinal: Negative for abdominal pain, anorexia, blood in stool, constipation, diarrhea, nausea and vomiting. Genitourinary: Negative for difficulty urinating, dysuria and frequency. Musculoskeletal: Negative for arthralgias, back pain, joint swelling and myalgias. Skin: Negative for rash and wound. Neurological: Negative for dizziness, tremors, seizures, syncope, numbness and headaches. Psychiatric/Behavioral: Positive for decreased concentration. Negative for behavioral problems, self-injury and suicidal ideas. The patient is not nervous/anxious. Depression Hematological: Does not bruise/bleed easily. Endocrine: Negative for polydipsia, polyphagia and polyuria. Allergic/Immunologic: Negative for environmental allergies and food allergies. PAST MEDICAL HISTORY Past Medical History: Diagnosis Date Abnormal EKG Adult ADHD ([facility]) Arthralgia Arthritis Cervical cancer ([facility]) Chronic seasonal allergic rhinitis due to pollen 08/23/2023 Endometriosis 08/23/2023 Fatigue 08/23/2023 Generalized anxiety disorder ([facility]) 08/23/2023 GERD (gastroesophageal reflux disease) Hypercalcemia Hyperlipidemia ([facility]) 08/23/2023 Insomnia, controlled Mild episode of recurrent major depressive disorder (HCC) ([facility]) 07/04/2023 Mixed hyperlipidemia ([facility]) 07/04/2023 Vitamin D deficiency 07/04/2023 Past Surgical History: Procedure Laterality Date SECTION, LOW TRANSVERSE 1985 HYSTERECTOMY 1993 PARATHYROID GLAND SURGERY 01/16/2022 Excision Parathyroid Adenoma TUBAL LIGATION 1992 family history includes Cancer in her maternal grandmother; Diabetes in her maternal grandmother. OBJECTIVE: Visit Vitals BP 108/78 (BP Location: Left arm, Patient Position: Sitting, BP Cuff Size: Adult long) Pulse 82 Temp 97.5 F (Temporal) Resp 18 Ht 5' 1 Wt 195 lb 9.6 oz SpO2 97% BMI 36.96 kg/m Smoking Status Former BSA 1.95 m Physical Exam Vitals reviewed. Constitutional: General: She is not in acute distress. Appearance: Normal appearance. HENT: Head: Normocephalic and atraumatic. Right Ear: Tympanic membrane, ear canal and external ear normal. Left Ear: Tympanic membrane, ear canal and external ear normal. Nose: Nose normal. Mouth/Throat: Mouth: Mucous membranes are moist. Pharynx: No oropharyngeal exudate or posterior oropharyngeal erythema. Eyes: Extraocular Movements: Extraocular movements intact. Conjunctiva/sclera: Conjunctivae normal. Neck: Vascular: No carotid bruit. Cardiovascular: Rate and Rhythm: Normal rate and regular rhythm. Pulses: Normal pulses. Heart sounds: Normal heart sounds. Pulmonary: Effort: Pulmonary effort is normal. Breath sounds: Normal breath sounds. Abdominal: General: Bowel sounds are normal. There is no distension. Palpations: Abdomen is soft. There is no mass. Tenderness: There is no abdominal tenderness. Musculoskeletal: General: Normal range of motion. Cervical back: Neck supple. Lymphadenopathy: Cervical: No cervical adenopathy. Skin: General: Skin is warm and dry. Capillary Refill: Capillary refill takes 2 to 3 seconds. Findings: No rash. Neurological: General: No focal deficit present. Mental Status: She is alert and oriented to person, place, and time. Psychiatric: Mood and Affect: Mood normal. Behavior: Behavior normal. Thought Content: Thought content normal. Judgment: Judgment normal. ASSESSMENT AND PLAN: No follow-ups on file. Problem List Items Addressed This Visit Hyperparathyroidism (CMS/HCC) - Primary Has surgery to remove, no further fu appts Nontoxic single thyroid nodule (CMS/HCC) Vitamin D deficiency Relevant Orders Comprehensive metabolic panel Vitamin D 25 hydroxy BMI 36.0-36.9,adult Chronic fatigue No clear etiology, will check labs Differential: GABBIE, depression, anemia, thyroid issues Relevant Orders CBC and differential TSH W/REFLEX TO FT4 Thyroid peroxidase and thyroglobulin antibodies T3, free Vitamin B12 Iron level Weight gain Relevant Orders TSH W/REFLEX TO FT4 Thyroid peroxidase and thyroglobulin antibodies T3, free Insulin, random Hemoglobin A1c Screening for colon cancer Relevant Orders Cologuard colon cancer screening Other Visit Diagnoses Hyperparathyroidism, unspecified (E21.3) Relevant Orders Comprehensive metabolic panel Vitamin D 25 hydroxy Major depressive disorder, recurrent, mild (F33.0) documented in this encounter [facility] Clinical Note 01-04-2022 Note Date & Type Note Facility 01-04-2022 Note PROCEDURE: [facility] VCT 64, 5 mm slice axial images were acquired with coronal reconstruction through the neck 4D with and without contrast. FINDINGS: Closely neighboring the posterior lateral aspect of the right mid/inferior thyroid lobe is a 4 x 11 x 20 mm mass, hypodense to thyroid tissue on precontrast imaging, peripherally enhancing with increased washout to normal thyroid tissue on delayed imaging. Arterial supply rises from the proximal right subclavian artery at the thoracic inlet (typical 3 vessel aortic arch). No distinct fat plane is identified between the medial aspect of this nodule and the lateral aspect of enhancing thyroid tissue. This may reside within the thyroid capsule. No regional lymphadenopathy. Normal pharyngeal mucosal space. Non-specific bilateral jugulodigrastic subcentimeter lymph node. Normal lung apices, major salivary glands, visualized mastoid air cells. Normal superior mediastinum. IMPRESSION: 1. Hypodense nodule closely neighboring possibly within the capsule right mid/lower thyroid lobe consistent with a parathyroid adenoma. Report reported and signed by Christiano Sales on 01/04/2022 1536 [facility] [employer] Evaluation note Note Date & Type Note Facility Evaluation note No assessment information [facility] Work Phone: Evaluation note Note Date & Type Note Facility Evaluation note Diagnosis Hyperparathyroidism (CMS/HCC)- Primary Hyperparathyroidism, unspecified BMI 36.0-36.9,adult Hyperparathyroidism, unspecified (E21.3) Hyperparathyroidism, unspecified Major depressive disorder, recurrent, mild (F33.0) Major depressive disorder, recurrent episode, mild Chronic fatigue Other malaise and fatigue Nontoxic single thyroid nodule (CMS/HCC) Nontoxic uninodular goiter Vitamin D deficiency Weight gain Other symptoms concerning nutrition, metabolism, and development Screening for colon cancer Special screening for malignant neoplasms, colon documented in this encounter [facility] Summary Purpose Family History No Family History Records Found Relationship Condition Age at Onset Recorded Date/T baron father Family history of co ronary artery bypass graft Unknown Not Specified Heart valve disease Unknown Peripheral vascular disease Unknown Diverticulitis Unknown Advance Directives No Advanced Directives Records Found Advance Directive Response Recorded Date/ Time Advance Directives No December 15 11:39am Advance Directive Response Recorded Date/ Time Advance Directives No December 15 2 10:39am Hospital Course Note [facility] SURGERY Clinical Discharge Summary PERSON INFORMATION Name SANDRA HAMMOND Age 54 Years 1965 Sex FEMALE Language Maori PCP Nadia Stallworth CNP Marital Status Med Service Pain Management Surgery Acct# Arrival 08/27/2019 10:37:00 Visit Reason low back pain Acuity LOS 034 01:18 Address: [address] [place] [address] Comment: PROVIDER INFORMATION VITALS INFORMATION Vital Sign Triage Latest Temp Oral Temp Temporal Temp Intravascular Temp Axillary Temp Rectal 02 Sat 97 % 97 % Respiratory Rate Peripheral Pulse Rate Apical Heart Rate Blood Pressure / 71 mmHg / 71 mmHg Comment: MEDICAL INFORMATION Allergy Info: No Known Medication Allergies Prescriptions Given: acetaminophen-oxycodone (Percocet 5/325 oral tablet) 1 tab(s) Oral every day as needed for pain. ok to fill.. Refills: 0. celecoxib (CeleBREX 200 mg oral capsule) 1 cap(s) Oral every day. tablets ok, generic med ok. Refills: 3. DULoxetine (Cymbalta 30 mg (more content not included)... Chief Complaint and Reason for Visit Chief Complaint e83.52 e21.0 e55.9 m 81.0 Chief Complaint e83.52 e21.0 e55.9 m 81.0 Hyperparathyroidism Chief Complaint e83.52 e21.0 e55.9 m 81.0 Hyperparathyroidism Hyperparathyroidism Additional Source Comments INFORMATION SOURCE (unrecogn ized section and content) DATE CREATED AUTHOR 08/26/[address] [facility] DATE CREATED AUTHOR AUTHOR'S ORGANIZ ATION [facility]16/[facility] DATE CREATED AUTHOR AUTHOR'S ORGANIZ ATION 01/05/2022 [facility] dical Specialist DATE CREATED AUTHOR AUTHOR'S ORGANIZ ATION 09/24/2022 [facility] DATE CREATED AUTHOR AUTHOR'S ORGANIZ ATION 10/31/2023 [facility] dical Specialists EPIC Care Teams (unrecognized sec tion and content) Team Status: Inactive Member Role Status Dates Kaety Bryant MD Attending Provider Active Sandra Ho Primary Care Provider Active Team Status: Active Member Role Status Dates Sandra Ho Primary Care Provider Active Team Status: Inactive Member Role Status Dates Sandra Ho Primary Care Provider Active Noel Santiago DO Attending Provider Active Disassembler Product Relationship Specialty Start Date End Date Eduard Sethi MD PCP - General Family Medicine 07/30/23 Sandra Ho NP [address] [place] [address] Nurse Practitioner Family Medicine 07/30/23 Disassembler Product Relationship Specialty Start Date End Date Eduard Sethi MD PCP - General Family Medicine 07/30/23 Sandra Ho NP [address] [place] [address] Nurse Practitioner Family Medicine 07/30/23 Goals (unrecognized section and content) Goals may be documented in a n alternate sectionGoals may be documented in an alternate sectionGoals may be documented in an alternate section FOR RECORDS PERTAINING TO PATIENTS WHO ARE OR HAVE BEEN ENROLLED IN A CHEMICAL DEPENDENCY/SUBSTANCEABUSE PROGRAM, SOME INFORMATION MAY BE OMITTED. This clinical summary was aggregated from multiple sources. Caution should be exercised in using it in the provision of clinical care. This summary normalizes information from multiple sources, and as a consequence, information in this document may materially change the coding, format and clinical context of patient data. In addition, data may be omitted in some cases. CLINICAL DECISIONS SHOULD BE BASED ON THE PRIMARY CLINICAL RECORDS. [facility]. provides no warranty or guarantee of the accuracy or completeness of information in this document.
[2024-03-12 09:26] LABS: Internal Control Within Normal Limits; SARS-CoV-2 Ag NEGATIVE (NEGATIVE)
== END 2024-03-12 09:00 | disposition home or self-care (01) ==
LOC: LAB 08:59
PROVIDERS: PCP Nurse Practitioner; Visit Provider Nurse Practitioner
DX: Z20.822 Contact with and (suspected) exposure to COVID-19 (principal)
CPT/HCPCS: 87811